=== PATIENT | male | born 1970 | race American Indian/Alaskan Native ===

== ENCOUNTER 2016-06-11 05:01 | Inpatient (IN) | payer MEDICARE ==
[2016-06-11] MEDS ORDERED: LASIX IV ONE (05:26)
[2016-06-11 05:41] LABS: Basophils % (Auto) 0.3 % (0.0-1.8); Eosinophils % (Auto) 0.7 % (0.0-4.3); Hematocrit 29.2 % (35.5-45.6); Hemoglobin 9.6 gm/dl (11.8-15.2); Mean Corpuscular HGB Conc 33 % (32-34); Mean Corpuscular Hemoglobin 26 pg (28-32); Mean Corpuscular Volume 80 fl (84-94); Platelet Count 286 K/mm3 (140-440); Red Blood Count 3.66 M/mm3 (3.65-5.03); Red Cell Distribution Width 15.2 % (13.2-15.2); White Blood Count 16.2 K/mm3 (4.5-11.0)
[2016-06-11 05:50] LABS: INR 0.92 (0.87-1.13)
[2016-06-11 05:51] LABS: Partial Thromboplastin Time 27.8 Sec. (24.2-36.6)
[2016-06-11 05:55] LABS: Creatine Kinase MB 6.2 ng/mL (0.0-4.0)
[2016-06-11 05:59] LABS: BUN/Creatinine Ratio 24.34; Calcium 8.8 mg/dL (8.4-10.2); Chloride 97.1 mmol/L (98-107); Potassium 3.7 mmol/L (3.6-5.0)
--- NOTE | 2016-06-11 06:21 | XRay Report ---
FINAL REPORT PROCEDURE: XR CHEST 1V AP TECHNIQUE: Chest radiograph anteroposterior view. CPT 94354 HISTORY: shortness of breath COMPARISON: No prior studies are available for comparison. FINDINGS: Heart: Normal. Mediastinum/Vessels: Normal. Lungs/Pleural space: Mild infiltrates bilateral lower lungs. No effusion or pneumothorax. Bony thorax: No acute osseous abnormality. Life support devices: None. IMPRESSION: Mild bilateral lower lung infiltrates..
[2016-06-11] MEDS ORDERED: ROCEPHIN/NS 1 GM/50 ML 1 GM/50 ML BAG IV ONE (06:24)
[2016-06-11] MEDS ORDERED: ZITHROMAX 500 MG in NACL 0.9% 250ML 250 ML IV ONE (06:24)
--- NOTE | 2016-06-11 06:25 | Emergency Department Report ---
ED General Adult HPI - General Chief complaint: Dyspnea/Respdistress Stated complaint: DIFFICULTY IN BREATHING Time Seen by Provider: 06/11/16 06:17 Source: patient, EMS, RN notes reviewed, old records reviewed Mode of arrival: Stretcher Limitations: Physical Limitation - History of Present Illness Initial comments: This is a 45-year-old male. He has a past medical history of congestive heart failure, renal insufficiency, hypertension/elevated blood pressure. Patient is brought to the hospital by EMS for respiratory distress. As per EMS documentation, patient began to have difficulty breathing at around midnight. Patient's has had previous intubations. Patient was medicated by self with Lasix, prednisone, albuterol. Prior to my evaluation, the patient was started on BiPAP therapy and Lasix, which she reports improved his symptoms. In addition, EMS gave 324 of aspirin at 4:31 AM. The patient denies dietary indiscretions, denies pain at this time , admits to cough, admits to shortness of breath. -: Gradual Quality: constant Consistency: constant Improves with: other (bi pap, meds) Worsens with: movement Associated Symptoms: cough, shortness of breath, weakness - Related Data Home Medications Medication Instructions Recorded Confirmed Last Taken Gabapentin [Neurontin] 600 mg PO TID 11/08/15 06/11/16 06/10/16 Clonidine HCl [Catapres] 0.3 mg PO BID 02/12/16 06/11/16 06/10/16 Ergocalciferol(Vitamin D2)(Nf) 3,200 unit PO QWEEK 02/12/16 06/11/16 06/10/16 [Vitamin D (Nf)] ISOSORBIDE MONOnitrate [Imdur ER] 60 mg PO QDAY 02/12/16 06/11/16 06/10/16 Omeprazole 40 mg PO DAILY 02/12/16 06/11/16 06/10/16 Oxycodone HCl/Acetaminophen 1 each PO Q8HR PRN 02/12/16 06/11/16 06/10/16 [Percocet 10/325 mg] clonazePAM 1 mg PO BID PRN 02/12/16 06/11/16 06/10/16 Insulin Glargine [Lantus VIAL] 100 unit SUB-Q QHS 06/11/16 06/11/16 06/10/16 Minoxidil 06/11/16 Unknown Previous Rx's Medication Instructions Recorded Last Taken Type Insulin Aspart [NovoLOG Flexpen] 60 unit SQ TID #10 ml 07/06/14 06/10/16 Rx ALBUTEROL Inhaler [ProAir HFA 2 puff IH QID PRN #1 inha 02/08/15 06/10/16 Rx Inhaler] Aspirin EC [Aspirin Enteric Coated 81 mg PO QDAY #30 tablet 02/08/15 06/10/16 Rx TAB] Carvedilol [Coreg] 25 mg PO BID #60 tablet 02/08/15 06/10/16 Rx Simvastatin [Zocor TAB] 40 mg PO QHS #30 tablet 02/08/15 06/10/16 Rx Bumetanide [Bumex] 1 mg PO BID #60 tab 02/19/16 06/10/16 Rx Loratadine/Pseudoephedrine 1 tab PO DAILY #30 tablet 06/12/16 Unknown Rx [Claritin-D 24Hr] Prednisone [predniSONE 10 mg 10 mg PO .TAPER #1 tab.ds.pk 06/12/16 Unknown Rx (6-Day Pack, 21 Tabs)] Allergies Allergy/AdvReac Type Severity Reaction Status Date / Time No Known Allergies Allergy Verified 11/25/13 20:27 ED Review of Systems ROS: Stated complaint: DIFFICULTY IN BREATHING Other details as noted in HPI Constitutional: malaise Eyes: denies: vision change ENT: denies: epistaxis Respiratory: shortness of breath Cardiovascular: dyspnea on exertion Gastrointestinal: denies: abdominal pain Genitourinary: as per HPI Musculoskeletal: arthralgia Skin: denies: lesions Neurological: weakness Psychiatric: anxiety ED Past Medical Hx - Past Medical History Previous Medical History?: Yes Hx Hypertension: Yes Hx Heart Attack/AMI: Yes (2009, last June 2015) Hx Congestive Heart Failure: Yes Hx Diabetes: Yes Hx Liver Disease: No Hx Renal Disease: Yes (Stage 3) Hx Kidney Stones: Yes (chronic) Hx Asthma: Yes Hx COPD: Yes Hx HIV: No Additional medical history: high cholestrerol - Surgical History Past Surgical History?: Yes Hx Coronary Stent: Yes - Social History Smoking Status: Never Smoker Substance Use Type: None - Medications Home Medications: Home Medications Medication Instructions Recorded Confirmed Last Taken Type Insulin Aspart [NovoLOG Flexpen] 60 unit SQ TID #10 ml 07/06/14 06/11/16 Rx ALBUTEROL Inhaler [ProAir HFA 2 puff IH QID PRN #1 inha 02/08/15 06/11/16 Rx Inhaler] Aspirin EC [Aspirin Enteric Coated 81 mg PO QDAY #30 tablet 02/08/15 06/11/16 Rx TAB] Carvedilol [Coreg] 25 mg PO BID #60 tablet 02/08/15 06/11/16 06/10/16 Rx Simvastatin [Zocor TAB] 40 mg PO QHS #30 tablet 02/08/15 06/11/16 06/10/16 Rx Gabapentin [Neurontin] 600 mg PO TID 11/08/15 06/11/16 06/10/16 History Clonidine HCl [Catapres] 0.3 mg PO BID 02/12/16 06/11/16 06/10/16 History Ergocalciferol(Vitamin D2)(Nf) 3,200 unit PO QWEEK 02/12/16 06/11/16 06/10/16 History [Vitamin D (Nf)] ISOSORBIDE MONOnitrate [Imdur ER] 60 mg PO QDAY 02/12/16 06/11/16 06/10/16 History Omeprazole 40 mg PO DAILY 02/12/16 06/11/16 06/10/16 History Oxycodone HCl/Acetaminophen 1 each PO Q8HR PRN 02/12/16 06/11/16 06/10/16 History [Percocet 10/325 mg] clonazePAM 1 mg PO BID PRN 02/12/16 06/11/16 06/10/16 History Bumetanide [Bumex] 1 mg PO BID #60 tab 02/19/16 06/11/16 06/10/16 Rx Insulin Glargine [Lantus VIAL] 100 unit SUB-Q QHS 06/11/16 06/11/16 06/10/16 History Minoxidil 06/11/16 Unknown History Loratadine/Pseudoephedrine 1 tab PO DAILY #30 tablet 06/12/16 Unknown Rx [Claritin-D 24Hr] Prednisone [predniSONE 10 mg 10 mg PO .TAPER #1 tab.ds.pk 06/12/16 Unknown Rx (6-Day Pack, 21 Tabs)] ED Physical Exam - General Limitations: Physical Limitation General appearance: obese - Head Head exam: Present: atraumatic, normocephalic - Eye Eye exam: Present: normal appearance - ENT ENT exam: Present: normal exam, normal orophraynx, mucous membranes moist, normal external ear exam - Neck Neck exam: Present: normal inspection, full ROM. Absent: tenderness, meningismus - Respiratory Respiratory exam: Present: respiratory distress, wheezes, rales, rhonchi - Cardiovascular Cardiovascular Exam: Present: regular rate, normal rhythm, normal heart sounds. Absent: bradycardia, tachycardia, irregular rhythm, systolic murmur, diastolic murmur, rubs, gallop - GI/Abdominal GI/Abdominal exam: Present: soft, normal bowel sounds. Absent: distended, tenderness, guarding, rebound, rigid, pulsatile mass - Rectal Rectal exam: Present: deferred - Extremities Exam Extremities exam: Present: normal inspection, full ROM, normal capillary refill , pedal edema. Absent: calf tenderness - Back Exam Back exam: Present: normal inspection, full ROM. Absent: tenderness, CVA tenderness (R), CVA tenderness (L), muscle spasm, paraspinal tenderness, vertebral tenderness - Neurological Exam Neurological exam: Present: alert, other (Extraocular movements intact. Tongue midline. No facial droop. Facial sensation intact to light touch in the V1, V2 , V3 distribution bilaterally. 5 and 5 strength in 4 extremities.. Sensation is intact to light touch in 4 extremities.). Absent: motor sensory deficit - Psychiatric Psychiatric exam: Present: normal affect, normal mood - Skin Skin exam: Present: warm, dry, intact, normal color. Absent: rash ED Course Vital Signs 06/11/16 06/11/16 06/11/16 05:02 05:08 05:20 Temperature 98.8 F Pulse Rate 92 H Respiratory 22 22 Rate Blood Pressure 130/75 Blood Pressure [Right] O2 Sat by Pulse 100 100 Oximetry 06/11/16 06/11/16 06/11/16 05:31 05:45 06:00 Temperature Pulse Rate 82 79 79 Respiratory 24 23 26 H Rate Blood Pressure 130/75 103/43 103/43 Blood Pressure [Right] O2 Sat by Pulse 98 100 99 Oximetry 06/11/16 06/11/16 06/11/16 06:31 07:12 07:58 Temperature 98.4 F Pulse Rate 77 78 73 Respiratory 25 H 20 23 Rate Blood Pressure 103/43 121/62 Blood Pressure 122/60 [Right] O2 Sat by Pulse 100 99 100 Oximetry 06/11/16 06/11/16 06/11/16 09:12 09:52 12:18 Temperature Pulse Rate 80 79 75 Respiratory 18 20 20 Rate Blood Pressure 138/71 138/69 121/57 Blood Pressure [Right] O2 Sat by Pulse 100 97 100 Oximetry 06/11/16 06/11/16 13:21 13:27 Temperature 97.6 F Pulse Rate 75 80 Respiratory 16 Rate Blood Pressure 138/70 Blood Pressure 140/75 [Right] O2 Sat by Pulse 100 Oximetry - Reevaluation(s) Reevaluation #1: 06/11/16 07:21 Differential diagnosis: Respiratory failure, pneumonia, congestive heart failure , cardiorenal syndrome, pulmonary hypertension, obstructive sleep apnea, obesity hypoventilation syndrome, multifactorial shortness of breath Assessment and plan: 45-year-old male with chronic renal insufficiency, congestive heart failure, probable acute respiratory failure secondary to pneumonia/CHF. He is resting currently on BiPAP therapy at this time. He will be treated with empirically for antibiotics for community-acquired pneumonia. Currently awaiting callback from Hospital physician to arrange admission. Elevated troponin is appreciated, this is most likely secondary to renal insufficiency and cardiac strain. I will defer to inpatient team to contact cardiology and/or nephrology if they feel like it is required. Reevaluation #2: 06/11/16 07:36 Dr Landers accepts patient to his service ED Medical Decision Making - Lab Data Result diagrams: 06/12/16 06:41 06/12/16 06:41 Vital Signs 06/11/16 06/11/16 06/11/16 05:02 05:08 05:20 Temperature 98.8 F Pulse Rate 92 H Respiratory 22 22 Rate Blood Pressure 130/75 Blood Pressure [Right] O2 Sat by Pulse 100 100 Oximetry 06/11/16 06/11/16 06/11/16 05:31 05:45 06:00 Temperature Pulse Rate 82 79 79 Respiratory 24 23 26 H Rate Blood Pressure 130/75 103/43 103/43 Blood Pressure [Right] O2 Sat by Pulse 98 100 99 Oximetry 06/11/16 06/11/16 06:31 07:12 Temperature 98.4 F Pulse Rate 77 78 Respiratory 25 H 20 Rate Blood Pressure 103/43 Blood Pressure 122/60 [Right] O2 Sat by Pulse 100 99 Oximetry Lab Results 06/11/16 06/11/16 06/11/16 Range/Units 05:20 05:20 05:20 WBC 16.2 H (4.5-11.0) K/mm3 RBC 3.66 (3.65-5.03) M/mm3 Hgb 9.6 L (11.8-15.2) gm/dl Hct 29.2 L (35.5-45.6) % MCV 80 L (84-94) fl MCH 26 L (28-32) pg MCHC 33 (32-34) % RDW 15.2 (13.2-15.2) % Plt Count 286 (140-440) K/mm3 Lymph % (Auto) 6.7 L (13.4-35.0) % [place] % (Auto) 2.5 (0.0-7.3) % Eos % (Auto) 0.7 (0.0-4.3) % Baso % (Auto) 0.3 (0.0-1.8) % Lymph # 1.1 L (1.2-5.4) K/mm3 Hancock # 0.4 (0.0-0.8) K/mm3 Eos # 0.1 (0.0-0.4) K/mm3 Baso # 0.1 (0.0-0.1) K/mm3 Seg Neutrophils % 89.8 H (40.0-70.0) % Seg Neutrophils # 14.5 H (1.8-7.7) K/mm3 PT 12.3 (12.2-14.9) Sec. INR 0.92 (0.87-1.13) APTT 27.8 (24.2-36.6) Sec. Sodium 138 (137-145) mmol/L Potassium 3.7 (3.6-5.0) mmol/L Chloride 97.1 L (98-107) mmol/L Carbon Dioxide 24 (22-30) mmol/L Anion Gap 21 mmol/L BUN 56 H (9-20) mg/dL Creatinine 2.3 H (0.8-1.5) mg/dL Estimated GFR 38 ml/min BUN/Creatinine Ratio 24.34 % Glucose 357 H (75-100) mg/dL Calcium 8.8 (8.4-10.2) mg/dL CK-MB (CK-2) 6.2 H (0.0-4.0) ng/mL Troponin T 0.077 H (0.00-0.029) ng/mL NT-Pro-B Natriuret Pep 685.6 H (0-450) pg/mL Triglycerides 255 H (2-149) mg/dL Cholesterol 81 (50-199) mg/dL LDL Cholesterol Direct 9 L (50-130) mg/dL HDL Cholesterol 21 L (40-59) mg/dL Cholesterol/HDL Ratio 3.85 % - EKG Data -: EKG Interpreted by Me - EKG Data 06/11/16 07:22 normal sinus, 86 beats per minute, QTC 457 ms, motion artifact, nonspecific T-wave abnormality, not morphologically consistent with STEMI, when compared to old EKG from January 2017, appears essentially unchanged. - Radiology Data Radiology results: report reviewed, image reviewed X-ray of the chest demonstrates bilateral infiltrates, CHF versus pneumonia Critical Care Time: Yes Critical care time in (mins) excluding proc time.: 35 Critical care attestation.: If time is entered above; I have spent that time in minutes in the direct care of this critically ill patient, excluding procedure time. Critical Care Time: Critical care time included multiple bedside evaluations, interpretation of laboratory studies, radiology studies, time spent managing a patient with respiratory failure requiring initiation of positive pressure/noninvasive ventilation. This does not include procedure time. ED Disposition Clinical Impression: Renal insufficiency, Pneumonia, Elevated troponin, CHF (congestive heart failure) Disposition: OP ADMITTED IP TO THIS HOSP Is pt being admited?: Yes Condition: Good
--- NOTE | 2016-06-11 07:19 | Admit Criteria Form ---
Admission Criteria Documentation: HEART FAILURE: COMMON COMPLICATIONS Clinical Indications for Inpatient Care (Place 'X' for any and all applicable criteria): Ongoing inpatient care may be indicated for heart failure with ANY ONE of the following (1)(2)(3)(4)(5): [ ]I. Ongoing need for care for primary condition requiring frequent therapy adjustments because of changes in cardiac function (eg, drug dosage changes for drugs that are renally metabolized) [ ]II. New-onset heart failure [ ]III. Heart failure with decreased urine output not responsive to attempts to optimize volume status [ ]IV. Acute cardiac ischemia causing or associated with failure [X]V. Complications of heart failure, including ANY ONE of the following: [ ]a) Pericardial effusion [ ]b) Symptomatic pleural effusion [ ]c) O2 saturation <90% or PO2 < 60 mm Hg (8.0 kPa) on room air or require baseline supplemental O2 [ ]d) Tachypnea [X]e) Dyspnea [ ]f) Syncope [ ]g) Change in mental status [ ]h) Acute renal insufficiency that is severe (reduction of more than 50% in estimated glomerular filtration rate from baseline) or progressive reduction of more than 25% in estimated glomerular filtration rate from baseline, with creatinine continuing to rise) [ ]i) Hemodynamic instability [ ]j) Anasarca [ ]k) Clinically significant metabolic abnormalities due to heart failure (eg, new-onset metabolic acidosis) Extended stay beyond goal length of stay for primary condition may be needed until ALL of the following are present(1)(3): [ ]a) Stable and effective diuretic regimen established (or patient on stable dialysis regimen if in chronic renal failure) [ ]b) Breathing comfortably at rest [ ]c) Saturation of arterial oxygen greater than 90% or at acceptable baseline [ ]d) Pulmonary edema absent or improved [ ]e) Hemodynamic stability [ ]f) Volume status acceptable on oral medication [ ]g) Peripheral or sacral edema absent or improved [ ]h) Renal function stable and manageable at a lower level of care [ ]i) Complications (eg, pleural effusion) resolved or manageable at a lower level of care [ ]j) Patient or caregiver has received written discharge instructions or educational material addressing activity level, diet, discharge medications, follow-up appointment, weight monitoring, and what to do if symptoms worsen The original [facility] content created by [employer] has been revised. The portions of the content which have been revised are identified through the use of italic text or in bold, and [facility] has neither reviewed nor approved the modified material.All other unmodified content is copyright [facility]. Please see references footnoted in the original [facility] edition 2016 Admission Criteria Met: Yes
[2016-06-11] MEDS ORDERED: NON-FORMULARY (Oxycodone Hcl/Acetaminophen [Percocet 10/325 Mg] 1 EACH) PO PRN (08:10)
[2016-06-11] MEDS ORDERED: NON-FORMULARY (Clonazepam [Clonazepam] 1 MG) PO PRN (08:10)
[2016-06-11] MEDS ORDERED: PROAIR IH PRN (08:10)
--- NOTE | 2016-06-11 08:10 | History and Physical Report ---
History of Present Illness Date of examination: 06/11/16 History of present illness: This is a 45-year-old male. He has a past medical history of congestive heart failure, renal insufficiency, hypertension/elevated blood pressure. Patient is brought to the hospital by EMS for respiratory distress. As per EMS documentation, patient began to have difficulty breathing at around midnight. Patient's has had previous intubations. Patient was medicated by self with Lasix, prednisone, albuterol. Prior to my evaluation, the patient was started on BiPAP therapy and Lasix, which she reports improved his symptoms. In addition, EMS gave 324 of aspirin at 4:31 AM. The patient denies dietary indiscretions, denies pain at this time , admits to cough, admits to shortness of breath. Past History Past Medical History: diabetes, hypertension, hyperlipidemia Medications and Allergies Allergies Allergy/AdvReac Type Severity Reaction Status Date / Time No Known Allergies Allergy Verified 11/25/13 20:27 Home Medications Medication Instructions Recorded Confirmed Last Taken Type Insulin Aspart [NovoLOG Flexpen] 60 unit SQ TID #10 ml 07/06/14 06/11/16 Rx ALBUTEROL Inhaler [ProAir HFA 2 puff IH QID PRN #1 inha 02/08/15 06/11/16 Rx Inhaler] Aspirin EC [Aspirin Enteric Coated 81 mg PO QDAY #30 tablet 02/08/15 06/11/16 Rx TAB] Carvedilol [Coreg] 25 mg PO BID #60 tablet 02/08/15 06/11/16 06/10/16 Rx Simvastatin [Zocor TAB] 40 mg PO QHS #30 tablet 02/08/15 06/11/16 06/10/16 Rx Gabapentin [Neurontin] 600 mg PO TID 11/08/15 06/11/16 06/10/16 History Clonidine HCl [Catapres] 0.3 mg PO BID 02/12/16 06/11/16 06/10/16 History Ergocalciferol(Vitamin D2)(Nf) 3,200 unit PO QWEEK 02/12/16 06/11/16 06/10/16 History [Vitamin D (Nf)] ISOSORBIDE MONOnitrate [Imdur ER] 60 mg PO QDAY 1106/11/16 06/10/16 History Omeprazole 40 mg PO DAILY 02/12/16 06/11/16 06/10/16 History Oxycodone HCl/Acetaminophen 1 each PO Q8HR PRN 02/12/16 06/11/16 06/10/16 History [Percocet 10/325 mg] clonazePAM 1 mg PO BID PRN 02/12/16 06/11/16 06/10/16 History Bumetanide [Bumex] 1 mg PO BID #60 tab 02/19/16 06/11/16 06/10/16 Rx Insulin Glargine [Lantus VIAL] 100 unit SUB-Q QHS 06/11/16 06/11/16 06/10/16 History Minoxidil 06/11/16 Unknown History Review of Systems Constitutional: fatigue Cardiovascular: shortness of breath Exam - Constitutional Vitals: Temp Pulse Resp BP Pulse Ox 98.4 F 73 23 121/62 100 06/11/16 07:12 06/11/16 07:58 06/11/16 07:58 06/11/16 07:58 06/11/16 07:58 General appearance: Present: mild distress - EENT Eyes: Present: PERRL, EOM intact ENT: hearing intact, clear oral mucosa - Neck Neck: Present: supple, normal ROM - Respiratory Respiratory effort: normal Respiratory: bilateral: rhonchi - Cardiovascular Rhythm: regular Heart Sounds: Present: S1 & S2 - Extremities Extremity abnormal: edema - Abdominal General gastrointestinal: Present: soft, non-tender, non-distended, normal bowel sounds - Musculoskeletal Musculoskeletal: strength equal bilaterally - Psychiatric Psychiatric: appropriate mood/affect, intact judgment & insight - Neurologic Neurologic: CNII-XII intact, moves all extremities Results - Labs CBC & Chem 7: 06/11/16 05:20 06/11/16 05:20 Labs: Laboratory Last Values WBC 16.2 K/mm3 (4.5-11.0) H 06/11/16 05:20 RBC 3.66 M/mm3 (3.65-5.03) 06/11/16 05:20 Hgb 9.6 gm/dl (11.8-15.2) L 06/11/16 05:20 Hct 29.2 % (35.5-45.6) L 06/11/16 05:20 MCV 80 fl (84-94) L 06/11/16 05:20 MCH 26 pg (28-32) L 06/11/16 05:20 MCHC 33 % (32-34) 06/11/16 05:20 RDW 15.2 % (13.2-15.2) 06/11/16 05:20 Plt Count 286 K/mm3 (140-440) 06/11/16 05:20 Lymph % (Auto) 6.7 % (13.4-35.0) L 06/11/16 05:20 Bacon % (Auto) 2.5 % (0.0-7.3) 06/11/16 05:20 Eos % (Auto) 0.7 % (0.0-4.3) 06/11/16 05:20 Baso % (Auto) 0.3 % (0.0-1.8) 06/11/16 05:20 Lymph # 1.1 K/mm3 (1.2-5.4) L 06/11/16 05:20 Bacon # 0.4 K/mm3 (0.0-0.8) 06/11/16 05:20 Eos # 0.1 K/mm3 (0.0-0.4) 06/11/16 05:20 Baso # 0.1 K/mm3 (0.0-0.1) 06/11/16 05:20 Seg Neutrophils % 89.8 % (40.0-70.0) H 06/11/16 05:20 Seg Neutrophils # 14.5 K/mm3 (1.8-7.7) H 06/11/16 05:20 PT 12.3 Sec. (12.2-14.9) 06/11/16 05:20 INR 0.92 (0.87-1.13) 06/11/16 05:20 APTT 27.8 Sec. (24.2-36.6) 06/11/16 05:20 Sodium 138 mmol/L (137-145) 06/11/16 05:20 Potassium 3.7 mmol/L (3.6-5.0) 06/11/16 05:20 Chloride 97.1 mmol/L (98-107) L 06/11/16 05:20 Carbon Dioxide 24 mmol/L (22-30) 06/11/16 05:20 Anion Gap 21 mmol/L 06/11/16 05:20 BUN 56 mg/dL (9-20) H 06/11/16 05:20 Creatinine 2.3 mg/dL (0.8-1.5) H 06/11/16 05:20 Estimated GFR 38 ml/min 06/11/16 05:20 BUN/Creatinine Ratio 24.34 % 06/11/16 05:20 Glucose 357 mg/dL (75-100) H 06/11/16 05:20 Calcium 8.8 mg/dL (8.4-10.2) 06/11/16 05:20 Magnesium 1.7 mg/dL (1.7-2.3) 06/11/16 06:53 Total Creatine Kinase 11 units/L (55-170) L 06/11/16 05:20 CK-MB (CK-2) 6.2 ng/mL (0.0-4.0) H 06/11/16 05:20 CK-MB (CK-2) Rel Index 56.3 (0-4) H 06/11/16 05:20 Troponin T 0.077 ng/mL (0.00-0.029) H 06/11/16 05:20 NT-Pro-B Natriuret Pep 685.6 pg/mL (0-450) H 06/11/16 05:20 Triglycerides 255 mg/dL (2-149) H 06/11/16 05:20 Cholesterol 81 mg/dL (50-199) 06/11/16 05:20 LDL Cholesterol Direct 9 mg/dL (50-130) L 06/11/16 05:20 HDL Cholesterol 21 mg/dL (40-59) L 06/11/16 05:20 Cholesterol/HDL Ratio 3.85 % 06/11/16 05:20 Assessment and Plan - Patient Problems (1) CHF (congestive heart failure) Current Visit: Yes Status: Acute Qualifiers: Congestive heart failure type: C Congestive heart failure chronicity: C Plan to address problem: Will admit patient to telemetry, 2-D Echo, follow troponins, Lasix, carvedilol, cardiology consult (2) Elevated troponin Current Visit: Yes Status: Acute Plan to address problem: Cardiology consult, follow troponins, aspirin, beta blockers (3) Pneumonia Current Visit: Yes Status: Acute Qualifiers: Pneumonia type: P Aspiration pneumonia type: A Laterality: L Lung location: L Plan to address problem: Will start Levaquin IV, follow cultures (4) ADDY (acute kidney injury) Current Visit: No Status: Acute Plan to address problem: Nephrology consult. IV fluid hydration. Renal ultrasound
[2016-06-11] MEDS: COREG PO SCH ×2 (09:52→21:57)
[2016-06-11] MEDS: ZESTRIL PO SCH (09:54)
[2016-06-11] MEDS ORDERED: PERCOCET 5/325 PO PRN ×2 (10:00→11:00)
[2016-06-11] MEDS ORDERED: TYLENOL PO PRN (10:00)
[2016-06-11] MEDS ORDERED: NON-FORMULARY (Pregabalin [Lyrica] 50 MG) PO SCH (10:00)
[2016-06-11] MEDS ORDERED: NON-FORMULARY (Omeprazole [Omeprazole] 40 MG) PO SCH (10:00)
[2016-06-11] MEDS ORDERED: ERGOCALCIFEROL PO SCH (10:00)
[2016-06-11] MEDS ORDERED: NON-FORMULARY (Clonidine Hcl [Catapres] 0.3 MG) PO SCH (10:00)
[2016-06-11] MEDS ORDERED: ZOFRAN IV PRN (10:00)
[2016-06-11] MEDS ORDERED: DULCOLAX PR PRN (10:00)
[2016-06-11] MEDS ORDERED: MORPHINE IV PRN (10:00)
[2016-06-11] MEDS ORDERED: LOVENOX SUB-Q SCH (10:00)
[2016-06-11] MEDS ORDERED: MILK OF MAGNESIA PO PRN (10:00)
[2016-06-11] MEDS: LASIX IV SCH ×2 (10:44→21:57)
[2016-06-11] MEDS: CATAPRES PO SCH ×2 (12:18)
[2016-06-11] MEDS: PROTONIX PO SCH (12:19)
[2016-06-11] MEDS: LOVENOX SUB-Q SCH (12:19)
[2016-06-11] MEDS: LYRICA PO SCH ×2 (12:22→21:57)
[2016-06-11] MEDS: HALFPRIN EC PO SCH (13:27)
[2016-06-11] MEDS: IMDUR PO SCH (13:27)
[2016-06-11] MEDS: NEURONTIN PO SCH ×2 (15:26→20:10)
--- NOTE | 2016-06-11 17:58 | Consultation ---
History of Present Illness Consult date: 06/11/16 Requesting physician: [place] NAVA Consult reason: congestive heart failure, elevated troponin History of present illness: The patient has a history of chronic diastolic heart failure, obstructive sleep apnea and chronic respiratory failure on home oxygen therapy at 3 L by nasal cannula. He has chronic orthopnea. He claims that he has been hospitalized frequently over the past few months at [facility]. He also reports undergoing coronary angiography about a year ago at [facility] which revealed small vessel coronary disease. Echocardiogram in November 2015 revealed an ejection fraction of 50-55%. He woke up last night with shortness of breath and coughing as well as hemoptysis. Following initial bouts of hemoptysis, he was producing pink frothy sputum. There is no chest pain. Initial set of cardiac enzymes are mildly abnormal. Chest x-ray showed bilateral pulmonary infiltrates. The patient mentioned that he was being considered for ICD implantation during his recent hospitalization at [facility]. Past History Past Medical History: diabetes, heart failure (chronic diastolic heart failure) , hypertension, hyperlipidemia, renal failure, other (obstructive sleep apnea, coronary angiography about a year ago at [facility] reportedly showed small vessel disease, echo of November 2015 showed an ejection fraction of 50 55 percent, negative stress test in December 2013, chronic respiratory failure on home oxygen therapy) Past Surgical History: Other (coronary angiography) Social history: . denies: smoking, alcohol abuse Family history: no significant family history Medications and Allergies Allergies Allergy/AdvReac Type Severity Reaction Status Date / Time No Known Allergies Allergy Verified 11/25/13 20:27 Home Medications Medication Instructions Recorded Confirmed Last Taken Type Insulin Aspart [NovoLOG Flexpen] 60 unit SQ TID #10 ml 07/06/14 06/11/16 Rx ALBUTEROL Inhaler [ProAir HFA 2 puff IH QID PRN #1 inha 02/08/15 06/11/16 Rx Inhaler] Aspirin EC [Aspirin Enteric Coated 81 mg PO QDAY #30 tablet 02/08/15 06/11/16 Rx TAB] Carvedilol [Coreg] 25 mg PO BID #60 tablet 02/08/15 06/11/16 06/10/16 Rx Simvastatin [Zocor TAB] 40 mg PO QHS #30 tablet 02/08/15 06/11/1606/10/17 Rx Gabapentin [Neurontin] 600 mg PO TID 11/08/15 06/11/16 06/10/16 History Clonidine HCl [Catapres] 0.3 mg PO BID 02/12/16 06/11/16 06/10/16 History Ergocalciferol(Vitamin D2)(Nf) 3,200 unit PO QWEEK 02/12/16 06/11/16 06/10/16 History [Vitamin D (Nf)] ISOSORBIDE MONOnitrate [Imdur ER] 60 mg PO QDAY 02/12/16 06/11/16 06/10/16 History Omeprazole 40 mg PO DAILY 02/12/16 06/11/16 06/10/16 History Oxycodone HCl/Acetaminophen 1 each PO Q8HR PRN 02/12/16 06/11/16 06/10/16 History [Percocet 10/325 mg] clonazePAM 1 mg PO BID PRN 02/12/16 06/11/16 06/10/16 History Bumetanide [Bumex] 1 mg PO BID #60 tab 02/19/16 06/11/16 06/10/16 Rx Insulin Glargine [Lantus VIAL] 100 unit SUB-Q QHS 06/11/16 06/11/16 06/10/16 History Minoxidil 06/11/16 Unknown History Active Meds: Active Medications Acetaminophen (Tylenol) 650 mg PO Q4H PRN PRN Reason: Pain MILD(1-3)/Fever >100.5/ZIEGLER Albuterol (Proair) 2 puff IH QID PRN PRN Reason: Shortness Of Breath Aspirin (Halfprin Ec) 81 mg PO QDAY [facility] Last Admin: 06/11/16 13:27 Dose: 81 mg Bisacodyl (Dulcolax) 10 mg [place] QDAY PRN PRN Reason: Constipation unrelieved by MOM Carvedilol (Coreg) 25 mg PO BID [facility] Last Admin: 06/11/16 09:52 Dose: 25 mg Clonazepam (Klonopin) 1 mg PO BID PRN PRN Reason: Anxiety Clonidine HCl (Catapres) 0.1 mg PO BID [facility] Last Admin: 06/11/16 12:18 Dose: 0.1 mg Clonidine HCl (Catapres) 0.2 mg PO BID [facility] Last Admin: 06/11/16 12:18 Dose: 0.2 mg Enoxaparin Sodium (Lovenox) 40 mg SUB-Q QDAY@1000 [facility] Last Admin: 06/11/16 12:19 Dose: 40 mg Furosemide (Lasix) 20 mg IV BID [facility] Last Admin: 06/11/16 10:44 Dose: Not Given Gabapentin (Neurontin) 600 mg PO TID [facility] Last Admin: 06/11/16 15:26 Dose: 600 mg Isosorbide Mononitrate (Imdur) 60 mg PO QDAY [facility] Last Admin: 06/11/16 13:27 Dose: 60 mg Lisinopril (Zestril) 5 mg PO QDAY [facility] Last Admin: 06/11/16 09:54 Dose: Not Given Magnesium Hydroxide (Milk Of Magnesia) 30 ml PO Q4H PRN PRN Reason: Constipation Miscellaneous Medication (Ergocalciferol(Vitamin D2)(Nf)) 3,200 unit PO QWEEK [facility] Morphine Sulfate (Morphine) 2 mg IV Q4H PRN PRN Reason: Pain, Moderate (4-6) Ondansetron HCl (Zofran) 4 mg IV Q8H PRN PRN Reason: Nausea And Vomiting Oxycodone/Acetaminophen (Percocet 5/325) 1 tab PO Q8H PRN PRN Reason: Pain, Moderate (4-6) Pantoprazole Sodium (Protonix) 40 mg PO DAILY [facility] Last Admin: 06/11/16 12:19 Dose: 40 mg Pregabalin (Lyrica) 50 mg PO BID [facility] Last Admin: 06/11/16 12:22 Dose: Not Given Simvastatin (Zocor) 40 mg PO QHS [facility] Physical Examination Vital Signs Last Vital Signs Temp 97.6 F 06/11/16 13:21 Pulse 78 06/11/16 14:42 Resp 18 06/11/16 14:42 BP 138/70 06/11/16 13:27 Pulse Ox 98 06/11/16 14:42 General appearance: no acute distress HEENT: Positive: EOMI, Normocephaly, Mucus Membranes Moist Neck: Positive: neck supple, trachea midline Cardiac: Positive: Reg Rate and Rhythm, S1/S2 Lungs: Positive: Decreased Breath Sounds (bilaterally) Neuro: Positive: Grossly Intact Abdomen: Positive: Soft, Active Bowel Sounds. Negative: Tender Skin: Positive: Clear. Negative: Rash Musculoskeletal: Normal Range of Motion Extremities: Present: +1 Edema (in both legs) Results 06/11/16 05:20 06/11/16 05:20 - Imaging and Cardiology EKG: image reviewed EKG interpretations - Telemetry EKG Rhythm: Sinus Rhythm - EKG Sinus rhythms and dysrhythmias: sinus rhythm Repolarization changes or abnormalities: ST or T wave suggestive of ischemia Assessment and Plan Continue diuretics and other management. Obtain records of most recent hospitalization from [facility] including recent echocardiogram. - Patient Problems (1) Acute on chronic heart failure Current Visit: Yes Status: Acute Qualifiers: Heart failure type: unspecified heart failure type Qualified Code(s): I50.9 - Heart failure, unspecified (2) Elevation of cardiac enzymes Current Visit: Yes Status: Acute (3) Acute and chronic respiratory failure Current Visit: Yes Status: Acute Qualifiers: Respiratory failure complication: R (4) Acute kidney injury superimposed on CKD Current Visit: Yes Status: Acute (5) Obstructive sleep apnea Current Visit: Yes Status: Acute (6) Pneumonia Current Visit: Yes Status: Acute Qualifiers: Pneumonia type: P Aspiration pneumonia type: A Laterality: L Lung location: L (7) CAD (coronary artery disease) Current Visit: Yes Status: Chronic Qualifiers: Coronary Disease-Associated Artery/Lesion type: [place] artery [place] vs. transplanted heart: N Associated angina: A (8) Morbid obesity Current Visit: Yes Status: Chronic Qualifiers: Obesity type: O
[2016-06-11] MEDS: PROVENTIL IH SCH (19:53)
[2016-06-11] MEDS ORDERED: D50W (25GM) IV PRN (20:06)
[2016-06-11] MEDS ORDERED: ZOCOR PO SCH (22:00)
[2016-06-11] MEDS: NOVOLOG SUB-Q SCH (23:06)
[2016-06-12] MEDS: CATAPRES PO SCH ×4 (01:33→09:05)
[2016-06-12 07:50] LABS: Basophils % (Auto) 0.2 % (0.0-1.8); Eosinophils % (Auto) 0.7 % (0.0-4.3); Hematocrit 24.4 % (35.5-45.6); Mean Corpuscular HGB Conc 33 % (32-34); Mean Corpuscular Hemoglobin 26 pg (28-32); Mean Corpuscular Volume 80 fl (84-94); Platelet Count 212 K/mm3 (140-440); Red Blood Count 3.05 M/mm3 (3.65-5.03); Red Cell Distribution Width 15.1 % (13.2-15.2); White Blood Count 13.2 K/mm3 (4.5-11.0)
[2016-06-12] MEDS: PROVENTIL IH SCH ×2 (07:53→13:55)
[2016-06-12 08:03] LABS: Albumin 3.3 g/dL (3.9-5); Calcium 8.5 mg/dL (8.4-10.2); Chloride 95.8 mmol/L (98-107); Magnesium 1.8 mg/dL (1.7-2.3); Phosphorous 4.2 mg/dL (2.5-4.5); Potassium 3.5 mmol/L (3.6-5.0); Total Protein 6.7 g/dL (6.3-8.2)
--- NOTE | 2016-06-12 08:40 | Consultation ---
History of Present Illness - Reason for Consult Consult date: 06/12/16 acute renal failure Requesting physician: DOUGLAS YOO - History of Present Illness 35-year-old male who is well known to me with a history of chronic heart failure presented on account of shortness of breath. Patient states he was working on his car and on finishing up went into the house to do some schoolwork. He became sleepy and went to bed. He woke up at midnight coughing and short of breath. His gave him Lasix and prednisone and albuterol. Symptoms Worsened and at about 4 AM they called the ambulance and was brought to the hospital. Patient was given Lasix and placed on BiPAP enRoute. He admits that he had developed lower extremity swelling and palpitations. Denies any chest pain. Cough was productive of yellow sputum and became bloodstained. A few days prior to this he began having stuffy nose and a dry cough which he attributed to allergies. He went to the emergency room but was unable to be seen on account of the long wait. He admits to chills but no fever. Past History Past Medical History: diabetes, heart failure (chronic diastolic heart failure) , hypertension, hyperlipidemia, renal failure, other (obstructive sleep apnea, coronary angiography about a year ago at [facility] reportedly showed small vessel disease, echo of November 2015 showed an ejection fraction of 50 55 percent, negative stress test in December 2013, chronic respiratory failure on home oxygen therapy) Past Surgical History: Other (coronary angiography) Social history: . denies: smoking, alcohol abuse Family history: no significant family history Medications and Allergies Allergies Allergy/AdvReac Type Severity Reaction Status Date / Time No Known Allergies Allergy Verified 11/25/13 20:27 Home Medications Medication Instructions Recorded Confirmed Last Taken Type Insulin Aspart [NovoLOG Flexpen] 60 unit SQ TID #10 ml 07/06/14 06/11/16 Rx ALBUTEROL Inhaler [ProAir HFA 2 puff IH QID PRN #1 inha 02/08/15 06/11/16 Rx Inhaler] Aspirin EC [Aspirin Enteric Coated 81 mg PO QDAY #30 tablet 02/08/15 06/11/16 Rx TAB] Carvedilol [Coreg] 25 mg PO BID #60 tablet 02/08/15 06/11/1606/10/17 Rx Simvastatin [Zocor TAB] 40 mg PO QHS #30 tablet 02/08/15 06/11/16 06/10/16 Rx Gabapentin [Neurontin] 600 mg PO TID 11/08/15 06/11/16 06/10/16 History Clonidine HCl [Catapres] 0.3 mg PO BID 02/12/16 06/11/16 06/10/16 History Ergocalciferol(Vitamin D2)(Nf) 3,200 unit PO QWEEK 02/12/16 06/11/16 06/10/16 History [Vitamin D (Nf)] ISOSORBIDE MONOnitrate [Imdur ER] 60 mg PO QDAY 02/12/16 06/11/16 06/10/16 History Omeprazole 40 mg PO DAILY 02/12/16 06/11/16 06/10/16 History Oxycodone HCl/Acetaminophen 1 each PO Q8HR PRN 02/12/16 06/11/16 06/10/16 History [Percocet 10/325 mg] clonazePAM 1 mg PO BID PRN 02/12/16 06/11/16 06/10/16 History Bumetanide [Bumex] 1 mg PO BID #60 tab 02/19/16 06/11/16 06/10/16 Rx Insulin Glargine [Lantus VIAL] 100 unit SUB-Q QHS 06/11/16 06/11/16 06/10/16 History Minoxidil 06/11/16 Unknown History Loratadine/Pseudoephedrine 1 tab PO DAILY #30 tablet 06/12/16 Unknown Rx [Claritin-D 24Hr] Prednisone [predniSONE 10 mg 10 mg PO .TAPER #1 tab.ds.pk 06/12/16 Unknown Rx (6-Day Pack, 21 Tabs)] Active Meds: Active Medications Acetaminophen (Tylenol) 650 mg PO Q4H PRN PRN Reason: Pain MILD(1-3)/Fever >100.5/ZIEGLER Albuterol (Proair) 2 puff IH QID PRN PRN Reason: Shortness Of Breath Albuterol (Proventil) 2.5 mg IH TIDRT [facility] Last Admin: 06/12/16 07:53 Dose: 2.5 mg Aspirin (Halfprin Ec) 81 mg PO QDAY [facility] Last Admin: 06/11/16 13:27 Dose: 81 mg Bisacodyl (Dulcolax) 10 mg [place] QDAY PRN PRN Reason: Constipation unrelieved by MOM Carvedilol (Coreg) 25 mg PO BID [facility] Last Admin: 06/11/16 21:57 Dose: 25 mg Clonazepam (Klonopin) 1 mg PO BID PRN PRN Reason: Anxiety Last Admin: 06/11/16 20:10 Dose: 1 mg Clonidine HCl (Catapres) 0.1 mg PO BID [facility] Last Admin: 06/12/16 01:33 Dose: 0.1 mg Clonidine HCl (Catapres) 0.2 mg PO BID [facility] Last Admin: 06/12/16 01:34 Dose: 0.2 mg Dextrose (D50w (25gm)) 50 ml IV PRN PRN PRN Reason: Hypoglycemia Enoxaparin Sodium (Lovenox) 40 mg SUB-Q QDAY@1000 [facility] Last Admin: 06/11/16 12:19 Dose: 40 mg Furosemide (Lasix) 20 mg IV BID [facility] Last Admin: 06/11/16 21:57 Dose: 20 mg Gabapentin (Neurontin) 600 mg PO TID [facility] Last Admin: 06/11/16 20:10 Dose: 600 mg Insulin Aspart (Novolog) 0 units SUB-Q ACHS [facility] PRN Reason: Protocol Last Admin: 06/11/16 23:06 Dose: 8 units Isosorbide Mononitrate (Imdur) 60 mg PO QDAY [facility] Last Admin: 06/11/16 13:27 Dose: 60 mg Lisinopril (Zestril) 5 mg PO QDAY [facility] Last Admin: 06/11/16 09:54 Dose: Not Given Magnesium Hydroxide (Milk Of Magnesia) 30 ml PO Q4H PRN PRN Reason: Constipation Miscellaneous Medication (Ergocalciferol(Vitamin D2)(Nf)) 3,200 unit PO QWEEK [facility] Morphine Sulfate (Morphine) 2 mg IV Q4H PRN PRN Reason: Pain, Moderate (4-6) Ondansetron HCl (Zofran) 4 mg IV Q8H PRN PRN Reason: Nausea And Vomiting Oxycodone/Acetaminophen (Percocet 5/325) 1 tab PO Q8H PRN PRN Reason: Pain, Moderate (4-6) Last Admin: 06/11/16 20:10 Dose: 1 tab Pantoprazole Sodium (Protonix) 40 mg PO DAILY [facility] Last Admin: 06/11/16 12:19 Dose: 40 mg Pregabalin (Lyrica) 50 mg PO BID [facility] Last Admin: 06/11/16 21:57 Dose: 50 mg Simvastatin (Zocor) 40 mg PO QHS [facility] Last Admin: 06/11/16 21:57 Dose: 40 mg Review of Systems All systems: negative (Constitutional: no fever but admits to chills. No anorexia or weight loss. HEENT: Occasional sore throat but no sinus drainage no hearing or vision impairment . Cardiovascular: No chest pain, he had shortness of breath, palpitations, and and lower extremity swelling. Respiratory: See history of present illness Gastrointestinal: No nausea, vomiting, diarrhea, abdominal pain, hematemesis or melena. Genitourinary: No frequency urgency dysuria or hematuria. hematologic: No abnormal bleeding or bruising. Integumentary: no pruritus or rash. Neurological: Occasional headache and dizziness. No focal weakness or numbness, no syncope or seizures. Musculoskeletal: No joint pains but admits to stiffness. Psychiatry: Admits to anxiety but no depression) Exam - Vital Signs Vital signs: Vital Signs Temp Pulse Resp BP Pulse Ox 98.8 F 92 H 22 130/75 100 06/11/16 05:02 06/11/16 05:02 06/11/16 05:02 06/11/16 05:02 06/11/16 05:02 - Physical Exam Narrative exam: Obese middle-aged -[place] male lying in bed in no acute distress HEENT normocephalic atraumatic, pupils equal reactive to light, pink, clear oropharynx Neck supple, no thyromegaly no jugular venous distention CVS S1-S2 distant heart sounds, regular rate rhythm without murmur, rub or gallop Chest diminished breath sounds lower zones Abdomen soft, nondistended, nontender, no organomegaly, no bruit, bowel sounds present Extremities 1-2+ edema no cyanosis or clubbing Genitourinary deferred Neuro awake, alert oriented x3 no gross deficit Results - Lab Results 06/12/16 06:41 06/12/16 06:41 Most recent lab results Calcium 8.5 mg/dL (8.4-10.2) 06/12/16 06:41 Phosphorus 4.2 mg/dL (2.5-4.5) 06/12/16 06:41 Magnesium 1.8 mg/dL (1.7-2.3) 06/12/16 06:41 Assessment and Plan - Patient Problems (1) Acute kidney injury superimposed on chronic kidney disease Status: Acute Plan to address problem: Baseline chronic kidney disease with superimposed acute cardiorenal syndrome. Get urinalysis. Follow up electrolytes and renal function with IV diuretic. (2) Acute on chronic diastolic heart failure Status: Acute Plan to address problem: IV diuretic. Change to Bumex 1 mg IV every 12 hours. Monitor outputs and follow-up at rest or status (3) Reactive airway disease with acute exacerbation Status: Acute Plan to address problem: Bronchodilating nebulizer treatments, IV steroids and supplemental oxygen. (4) Anemia in chronic kidney disease Status: Acute Plan to address problem: Get stool for occult blood. Follow-up hemoglobin. Transfuse if it decreases to less than 7 g/dL outpatient symptomatic (5) Hypertensive chronic kidney disease with stage 1 through stage 4 chronic kidney disease, or unspecified chronic kidney disease Status: Acute Plan to address problem: Follow-up blood pressure on current medications. (6) Morbid obesity with BMI of 40.0-44.9, adult Status: Chronic
[2016-06-12] MEDS: LOVENOX SUB-Q SCH (09:02)
[2016-06-12] MEDS: ZESTRIL PO SCH (09:03)
[2016-06-12] MEDS: IMDUR PO SCH (09:03)
[2016-06-12] MEDS: HALFPRIN EC PO SCH (09:03)
[2016-06-12] MEDS: PROTONIX PO SCH (09:03)
[2016-06-12] MEDS: NEURONTIN PO SCH ×2 (09:05→13:18)
[2016-06-12] MEDS: COREG PO SCH (09:05)
[2016-06-12] MEDS: LYRICA PO SCH (09:05)
[2016-06-12] MEDS: NOVOLOG SUB-Q SCH ×2 (09:14→13:19)
[2016-06-12 09:44] LABS: Bilirubin,Total 0.3 mg/dL (0.1-1.2)
[2016-06-12] MEDS ORDERED: K-DUR PO SCH (10:00)
--- NOTE | 2016-06-12 12:00 | Progress Note ---
Assessment and Plan Continue diuretics and other management. - Patient Problems (1) Acute on chronic diastolic heart failure Current Visit: Yes Status: Acute (2) Elevation of cardiac enzymes Current Visit: Yes Status: Acute (3) Acute and chronic respiratory failure Current Visit: Yes Status: Acute Qualifiers: Respiratory failure complication: R (4) Acute kidney injury superimposed on CKD Current Visit: Yes Status: Acute (5) Obstructive sleep apnea Current Visit: Yes Status: Acute (6) Pneumonia Current Visit: Yes Status: Acute Qualifiers: Pneumonia type: P Aspiration pneumonia type: A Laterality: L Lung location: L (7) Anemia Current Visit: Yes Status: Acute Qualifiers: Anemia type: A Iron deficiency anemia type: I Vitamin B12 deficiency anemia type: V Folate deficiency anemia type: F Bone marrow failure anemia type: B Hemolytic anemia type: H Other causes of anemia: O (8) Pneumonia Current Visit: Yes Status: Acute Qualifiers: Pneumonia type: P Aspiration pneumonia type: A Laterality: L Lung location: L (9) Morbid obesity Current Visit: Yes Status: Chronic Qualifiers: Obesity type: O Subjective Date of service: 06/12/16 Principal diagnosis: acute on chronic diastolic heart failure Interval history: The patient is resting comfortably in bed. He feels better today. Sinus rhythm on the monitor. Objective Last Vital Signs Temp 98.9 F 06/12/16 08:00 Pulse 81 06/12/16 09:05 Resp 22 06/12/16 08:05 BP 127/59 06/12/16 09:05 Pulse Ox 99 06/12/16 08:00 - Physical Examination General: No Apparent Distress HEENT: Positive: EOMI, Normocephaly, Mucus Membranes Moist Neck: Positive: neck supple, trachea midline Cardiac: Positive: Reg Rate and Rhythm, S1/S2 Lungs: Positive: Decreased Breath Sounds Neuro: Positive: Grossly Intact Abdomen: Positive: Soft, Active Bowel Sounds. Negative: Tender Skin: Positive: Clear. Negative: Rash Musculoskeletal: Normal Range of Motion Extremities: Present: +1 Edema (in both legs) - Labs and Meds Cardiac Enzymes 06/12/16 Range/Units 06:41 AST 17 (5-40) units/L CBC 06/12/16 Range/Units 06:41 WBC 13.2 H (4.5-11.0) K/mm3 RBC 3.05 L (3.65-5.03) M/mm3 Hgb 8.0 L (11.8-15.2) gm/dl Hct 24.4 L (35.5-45.6) % Plt Count 212 (140-440) K/mm3 Lymph # 1.7 (1.2-5.4) K/mm3 Thayer # 0.9 H (0.0-0.8) K/mm3 Eos # 0.1 (0.0-0.4) K/mm3 Baso # 0.0 (0.0-0.1) K/mm3 Comprehensive Metabolic Panel 06/12/16 Range/Units 06:41 Sodium 137 (137-145) mmol/L Potassium 3.5 L (3.6-5.0) mmol/L Chloride 95.8 L (98-107) mmol/L Carbon Dioxide 27 (22-30) mmol/L BUN 55 H (9-20) mg/dL Creatinine 2.2 H (0.8-1.5) mg/dL Glucose 267 H (75-100) mg/dL Calcium 8.5 (8.4-10.2) mg/dL AST 17 (5-40) units/L ALT 13 (7-56) units/L Alkaline Phosphatase 63 (35-129) units/L Total Protein 6.7 (6.3-8.2) g/dL Albumin 3.3 L (3.9-5) g/dL - Imaging and Cardiology EKG: image reviewed Echo: report reviewed (04/2016 at [facility]: EF 60-65%) - Telemetry EKG Rhythm: Sinus Rhythm - EKG Sinus rhythms and dysrhythmias: sinus rhythm Repolarization changes or abnormalities: ST or T wave suggestive of ischemia
[2016-06-12 12:47] VITALS: BP 127/74
[2016-06-12] MEDS ORDERED: BUMEX IV SCH ×2 (13:00→14:00)
--- NOTE | 2016-06-13 05:45 | Discharge Summary ---
Providers - Providers Date of Admission: 06/11/16 08:13 Attending physician: EMILY GASPAR 06/11/16 17:06 Consult to Physician [CONS] Routine Consulting Provider: JIMBO CHAVEZ Reason For Exam: arf Place consult to:: sachi Notified:: a service Phone number called:: [phone] Was contact made?: Yes If yes, spoke with:: azalea Time called:: 17:20 Primary care physician: [employer]PERVISOR Hospitalization Condition: Good Disposition: STILL A PATIENT Exam - Constitutional Vitals: Temp Pulse Resp BP Pulse Ox 97.6 F 80 17 127/74 98 06/12/16 12:46 06/12/16 14:08 06/12/16 14:03 06/12/16 12:46 06/12/16 12:46 Plan Follow up with: PRIMARY CARE, [Primary Care Provider] - 3-5 Days Prescriptions: Loratadine/Pseudoephedrine [Claritin-D 24Hr] 1 tab PO DAILY #30 tablet Prednisone [predniSONE 10 mg (6-Day Pack, 21 Tabs)] 10 mg PO .TAPER #1 tab.ds.pk
--- NOTE | 2016-06-15 08:55 | Query-Infection ---
Rey Scott [place] Date:__06/15/16 Relish Blender/CDS: Aram / Antonia Phone#:__[phone] Exercise your independent professional judgment when responding to this query. Questions asked do not imply a particular answer is desired or expected. We greatly appreciate your clarification on this issue. Clinical Documentation States: 45 year old male was admitted on 06/11/16. The H&P states " Pneumonia Current Visit: Yes Status: Acute Qualifiers: Pneumonia type: P Aspiration pneumonia type: A Laterality: L Lung location : L Plan to address problem: Will start Levaquin IV, follow cultures " WBC: 16.2(06/11/16) 13.2(06/12/16) Respiratory rate: 26 Pulse: 96 Lactic acid: 2.2 Clinical findings show: (please check applicable parameters) Infection, known /suspected, with some of the following indicators; Specify the infection: 3 General parameters [ ] Fever (core temp >38.30C or 100.40F) [ ] Hypothermia (core temp <36C) [ ] Heart rate >90 bpm [ ] Tachypnea: >20 bpm or pCO2 < 32 mmHg [ ] Altered mental status [ ] Significant edema / +ve fluid balance (>20 ml/kg 24 h) [ ] Hyperglycemia (Bl. glucose >110 mg/dl) w/o diabetes Inflammatory parameters [ ] Leukocytosis (white blood cell count >12,000/l) [ ] Leukopenia (white blood cell count <4,000/l) [ ] Bandemia (immature WBC > 10%) [ ] Leucocyte Left Shift [ ] Plasma procalcitonin>2 SD above the normal value Hemodynamic and tissue perfusion parameters [ ] Arterial hypotension(SBP <90 mmHg, MAP <70 mmHg,or a SBP drop >40 mmHg in adults) [ ] Hyperlactatemia (>3 mmol/l) [ ] Anion Gap (> 11mEG/l) [ ] Decreased capillary refill or mottling Organ dysfunction parameters [ ] Arterial hypoxemia (PaO2/FIO2 <300) [ ] Creatinine increase =0.5 mg/dl [ ] Acute oliguria (urine output <0.5 ml | kg |h or 45 mM/l for at least 2 hrs) [ ] Coagulation abnormalities (INR >1.5 or activated partial thromboplastin time >60 s) [ ] Ileus (absent rajesh wel sounds) [ ] Thrombocytopenia (platelet count <100,000/l) [ ] Hyperbilirubinemia (plasma total bilirubin >4 mg/dl) According to the clinical indications above, can Bacteremia be further specified? If so, please indicate below and in your Progress Notes and/ or Discharge Summary. Indicate if the condition was present on admission. PHYSICIAN RESPONSE: [x ] Sepsis [ ] Severe Sepsis [ ] Septic Shock [ ] Septicemia [ ] Sepsis now resolved [ ] SIRS due to non-infectious cause with organ dysfunction [ ] SIRS due to non-infectious cause without organ dysfunction [ ] Other: [ ] Comment/Explanation: Present on Admission: [ x] Yes (Y) [ ] Clinically undeterminable (W) [ ] No (N) [ ] Ruled Out Please also document response in your Progress Notes and/or Discharge Summary and indicate if the condition was present on admission Notes: SIRS/ SIRS WITH ORGAN DYSFUNCTION Systemic inflammatory response syndrome (SIRS) generally refers to the systemic response to trauma/german or other insult such as Acute Myocardial Infarction, Acute Pancreatitis, and Major Surgery with symptoms including fever, tachycardia , tachypnea, and leukocytosis (1). BACTEREMIA Presence of viable bacteria in the circulating blood (2). This term is reserved for patients that do not manifest above SIRS response. SEPTICEMIA Generally refers to a systemic disease associated with the presence of pathological microorganisms or toxins in the blood, which can include bacteria, viruses, fungi or other organisms (1). SEPSIS Generally refers to SIRS due infection (1). SEVERE SEPSIS Generally refers to sepsis associated with acute organ dysfunction (1). SEPTIC SHOCK Generally refers to circulatory failure associated with severe sepsis (2), and defined as hypotension or hypoperfusion despite adequate fluid resuscitation (1 hour) (3). REFERENCES: 1. [place] [employer]/Society of Critical Care Medicine Consensus Conference. Definitions for sepsis and organ failure and guidelines for the use of innovative therapies in sepsis. Critical Care Med 1992;20:864 - 74. 2. Christoph kulkarni MM, Mirna MP, Ike COY, Harmeet E, Sander D, Murray D, Ortiz J, [place] SM , Ramy JL, Landon G; International Sepsis Definitions Conference. 2001 SCCM/ESICM/ACCP/ATS/SIS International Sepsis Definitions Conference. Intensive Care Med. 2002 Apr;29(4):530-8. Epub 2002Jun 12. Review. PubMed PMID:[id number] 3. ICD-9-CM Official Guidelines for Coding and Reporting 4. Medscape Drugs, Diseases and Procedures references 5. [employer] Textbook of Internal Medicine. 18th Edition MTDD
== END 2016-06-12 15:53 | disposition home or self-care (01) | DRG 871 ==
LOC: ED 05:01 → 4A 08:13
PROVIDERS: ADMIT Internal Medicine; ATTEND Internal Medicine
PROC: 5A09357 Assistance with Respiratory Ventilation, Less than 24 Consecutive Hours, Continuous Positive Airway Pressure (ICD-10-PCS; principal; 2016-06-11)
DX: A41.9 Sepsis, unspecified organism (principal); I50.33 Acute on chronic diastolic (congestive) heart failure; J18.9 Pneumonia, unspecified organism; J96.20 Acute and chronic respiratory failure, unspecified whether with hypoxia or hypercapnia; N17.9 Acute kidney failure, unspecified; Z68.41 Body mass index [BMI] 40.0-44.9, adult; I13.0 Hypertensive heart and chronic kidney disease with heart failure and stage 1 through stage 4 chronic kidney disease, or unspecified chronic kidney disease; J44.1 Chronic obstructive pulmonary disease with (acute) exacerbation; J45.901 Unspecified asthma with (acute) exacerbation; F41.9 Anxiety disorder, unspecified; E11.22 Type 2 diabetes mellitus with diabetic chronic kidney disease; N18.3 Chronic kidney disease, stage 3 (moderate); J45.909 Unspecified asthma, uncomplicated; E78.00 Pure hypercholesterolemia, unspecified; E78.5 Hyperlipidemia, unspecified; G47.33 Obstructive sleep apnea (adult) (pediatric); E66.01 Morbid (severe) obesity due to excess calories; D63.1 Anemia in chronic kidney disease; Z79.899 Other long term (current) drug therapy; Z99.81 Dependence on supplemental oxygen
CPT/HCPCS: 36415; 71010; 80048; 80053; 80061; 82140; 82550; 82553; 82962; 83735; 83880; 84100; 84484; 85025; 85610; 85730; 87040; 93005; 93010; 94640; 94760; 96372; 99291; J0456; J0696; J1650; J1815; J1940; J7050

== ENCOUNTER 2016-07-13 15:36 | Emergency (ER) | payer MEDICARE ==
[2016-07-13] MEDS ORDERED: NACL 0.9% 500 ML 500 ML IV ONE (16:44)
[2016-07-13] MEDS ORDERED: ZOFRAN IV ONE ×2 (16:44→18:47)
--- NOTE | 2016-07-13 16:48 | Emergency Department Report ---
ED Dizziness HPI - General Chief Complaint: Dizziness Stated Complaint: FATIGUE/LOW BP Time Seen by Provider: 07/13/16 16:43 Source: patient, EMS Mode of arrival: Stretcher Limitations: No Limitations - History of Present Illness Initial Comments: 45-year-old male presents to the emergency department via EMS complaining of dizziness. Patient states that he was standing at the counter of a business when he began feeling lightheaded, like he might pass out. Patient did not lose consciousness. He states he was able to sit down, but was unable to get back up. EMS was called and found the patient to have a systolic blood pressure in the 80s. Fingerstick blood sugar by EMS was over 300. Upon arrival in the emergency department, the patient began having nausea and has vomited several times. He denies chest pain or difficulty breathing. There are no other complaints. MD Complaint: lightheadedness -: Sudden, This afternoon (just prior to arrival) Timing: sudden onset, constant Description: lightheadedness, nausea, near-syncope History of Same: No History of Trauma: No Severity: moderate Improves With: nothing Worsens With: nothing - Related Data Home Medications Medication Instructions Recorded Confirmed Last Taken Gabapentin [Neurontin] 600 mg PO TID 11/08/15 07/13/16 06/10/16 Clonidine HCl [Catapres] 0.3 mg PO BID 02/12/16 07/13/16 06/10/16 Ergocalciferol(Vitamin D2)(Nf) 3,200 unit PO QWEEK 02/12/16 07/13/16 06/10/16 [Vitamin D (Nf)] ISOSORBIDE MONOnitrate [Imdur ER] 60 mg PO QDAY 02/12/16 07/13/16 06/10/16 Omeprazole 40 mg PO DAILY 02/12/16 07/13/16 06/10/16 Oxycodone HCl/Acetaminophen 1 each PO Q8HR PRN 02/12/16 07/13/16 06/10/16 [Percocet 10/325 mg] clonazePAM 1 mg PO BID PRN 02/12/16 07/13/16 06/10/16 Insulin Glargine [Lantus VIAL] 100 unit SUB-Q QHS 06/11/16 07/13/16 06/10/16 Previous Rx's Medication Instructions Recorded Last Taken Type Insulin Aspart [NovoLOG Flexpen] 60 unit SQ TID #10 ml 07/06/14 06/10/16 Rx ALBUTEROL Inhaler [ProAir HFA 2 puff IH QID PRN #1 inha 02/08/15 06/10/16 Rx Inhaler] Aspirin EC [Aspirin Enteric Coated 81 mg PO QDAY #30 tablet 02/08/15 06/10/16 Rx TAB] Carvedilol [Coreg] 25 mg PO BID #60 tablet 02/08/15 06/10/16 Rx Simvastatin [Zocor TAB] 40 mg PO QHS #30 tablet 02/08/15 06/10/16 Rx Bumetanide [Bumex] 1 mg PO BID #60 tab 02/19/16 06/10/16 Rx Loratadine/Pseudoephedrine 1 tab PO DAILY #30 tablet 06/12/16 Unknown Rx [Claritin-D 24Hr] Prednisone [predniSONE 10 mg 10 mg PO .TAPER #1 tab.ds.pk 06/12/16 Unknown Rx (6-Day Pack, 21 Tabs)] Allergies Allergy/AdvReac Type Severity Reaction Status Date / Time No Known Allergies Allergy Verified 07/13/16 15:42 ED Review of Systems ROS: Stated complaint: FATIGUE/LOW BP Other details as noted in HPI Comment: All other systems reviewed and negative Cardiovascular: syncope (lightheadedness, no loss of consciousness) Gastrointestinal: nausea, vomiting ED Past Medical Hx - Past Medical History Previous Medical History?: Yes Hx Hypertension: Yes Hx Heart Attack/AMI: Yes (2009, last June 2015) Hx Congestive Heart Failure: Yes Hx Diabetes: Yes Hx Liver Disease: No Hx Renal Disease: Yes (Stage 3) Hx Kidney Stones: Yes (chronic) Hx Asthma: Yes Hx COPD: Yes Hx HIV: No Additional medical history: high cholestrerol - Surgical History Past Surgical History?: Yes Hx Coronary Stent: Yes - Family History Family history: diabetes - Social History Smoking Status: Never Smoker Substance Use Type: None - Medications Home Medications: Home Medications Medication Instructions Recorded Confirmed Last Taken Type Insulin Aspart [NovoLOG Flexpen] 60 unit SQ TID #10 ml 07/06/14 07/13/16 Rx ALBUTEROL Inhaler [ProAir HFA 2 puff IH QID PRN #1 inha 02/08/15 07/13/1606/10/ 17 Rx Inhaler] Aspirin EC [Aspirin Enteric Coated 81 mg PO QDAY #30 tablet 02/08/15 07/13/16 Rx TAB] Carvedilol [Coreg] 25 mg PO BID #60 tablet 02/08/15 07/13/16 06/10/16 Rx Simvastatin [Zocor TAB] 40 mg PO QHS #30 tablet 02/08/15 07/13/16 06/10/16 Rx Gabapentin [Neurontin] 600 mg PO TID 11/08/15 07/13/16 06/10/16 History Clonidine HCl [Catapres] 0.3 mg PO BID 02/12/16 07/13/16 06/10/16 History Ergocalciferol(Vitamin D2)(Nf) 3,200 unit PO QWEEK 02/12/16 07/13/16 06/10/16 History [Vitamin D (Nf)] ISOSORBIDE MONOnitrate [Imdur ER] 60 mg PO QDAY 02/12/16 07/13/16 06/10/16 History Omeprazole 40 mg PO DAILY 02/12/16 07/13/16 06/10/16 History Oxycodone HCl/Acetaminophen 1 each PO Q8HR PRN 02/12/16 07/13/16 06/10/16 History [Percocet 10/325 mg] clonazePAM 1 mg PO BID PRN 02/12/16 07/13/16 06/10/16 History Bumetanide [Bumex] 1 mg PO BID #60 tab 02/19/16 07/13/16 06/10/16 Rx Insulin Glargine [Lantus VIAL] 100 unit SUB-Q QHS 06/11/16 07/13/16 06/10/16 History Loratadine/Pseudoephedrine 1 tab PO DAILY #30 tablet 06/12/16 07/13/16 Unknown Rx [Claritin-D 24Hr] Prednisone [predniSONE 10 mg 10 mg PO .TAPER #1 tab.ds.pk 06/12/16 07/13/16 Unknown Rx (6-Day Pack, 21 Tabs)] ED Physical Exam - General Limitations: No Limitations General appearance: alert, in no apparent distress - Head Head exam: Present: atraumatic, normocephalic - Eye Eye exam: Present: normal appearance, PERRL, EOMI - ENT ENT exam: Present: normal exam, normal orophraynx, mucous membranes moist - Neck Neck exam: Present: normal inspection, full ROM. Absent: tenderness - Respiratory Respiratory exam: Present: normal lung sounds bilaterally. Absent: respiratory distress - Cardiovascular Cardiovascular Exam: Present: regular rate, normal rhythm, normal heart sounds - GI/Abdominal GI/Abdominal exam: Present: soft, normal bowel sounds. Absent: distended, tenderness - Extremities Exam Extremities exam: Present: normal inspection, full ROM. Absent: tenderness - Back Exam Back exam: Present: normal inspection, full ROM. Absent: tenderness - Neurological Exam Neurological exam: Present: alert, oriented X3. Absent: motor sensory deficit - Skin Skin exam: Present: warm, dry, intact ED Course Vital Signs 07/13/16 07/13/16 16:54 17:53 Temperature 98.1 F Pulse Rate 72 74 Respiratory 16 16 Rate Blood Pressure 102/56 111/64 [Left] O2 Sat by Pulse 98 95 Oximetry ED Medical Decision Making - Lab Data Result diagrams: 07/13/16 16:53 07/13/16 16:53 - EKG Data -: EKG Interpreted by Me EKG shows normal: sinus rhythm, axis, intervals, QRS complexes Rate: normal - EKG Data When compared to previous EKG there are: no significant change Interpretation: unchanged when compared t (02/12/2016), other (inferior and lateral T-wave inversions) - Medical Decision Making Lab results reviewed and discussed with the patient. Patient reports feeling better with medication. Patient's troponin is elevated and his creatinine has worsened. [facility] will [facility]. 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 Patient is to be admitted by the hospitalist. - Differential Diagnosis ACS, arrhythmia, DKA, hyperglycemia Critical care attestation.: If time is entered above; I have spent that time in minutes in the direct care of this critically ill patient, excluding procedure time. ED Disposition Clinical Impression: Acute kidney injury superimposed on chronic kidney disease, Elevation of cardiac enzymes Disposition: OP ADMITTED IP TO THIS HOSP Is pt being admited?: Yes Condition: Stable Referrals: PRIMARY CARE, [Primary Care Provider] - 3-5 Days Time of Disposition: 18:48
[2016-07-13 17:22] LABS: Basophils % (Auto) 0.6 % (0.0-1.8); Eosinophils % (Auto) 1.1 % (0.0-4.3); Hematocrit 36.9 % (35.5-45.6); Hemoglobin 12.5 gm/dl (11.8-15.2); Mean Corpuscular HGB Conc 34 % (32-34); Mean Corpuscular Hemoglobin 27 pg (28-32); Mean Corpuscular Volume 80 fl (84-94); Platelet Count 326 K/mm3 (140-440); Red Blood Count 4.64 M/mm3 (3.65-5.03); Red Cell Distribution Width 15.5 % (13.2-15.2); White Blood Count 7.1 K/mm3 (4.5-11.0)
[2016-07-13 17:46] LABS: Albumin 4.3 g/dL (3.9-5); Alkaline Phosphatase 87 units/L (35-129); Blood Urea Nitrogen 48 mg/dL (9-20); Calcium 9.8 mg/dL (8.4-10.2); Carbon Dioxide 24 mmol/L (22-30); Glucose 210 mg/dL (75-100); Sodium 132 mmol/L (137-145); Total Protein 8.6 g/dL (6.3-8.2)
[2016-07-13 18:23] LABS: Anion Gap 23 mmol/L; Potassium 4.3 mmol/L (3.6-5.0)
[2016-07-13 18:24] LABS: Alanine Aminotransferase 21 units/L (7-56)
[2016-07-13 19:01] LABS: Cholesterol 304 mg/dL (50-199); HDL Cholesterol 41 mg/dL (40-59); LDL Cholesterol,Direct TNR mg/dL (50-130); Triglycerides 418 mg/dL (2-149)
[2016-07-13 19:43] VITALS: BP 116/70
== END 2016-07-13 20:52 | disposition admitted as inpatient to this hospital (09) ==
LOC: ED 15:36
DX: I12.9 Hypertensive chronic kidney disease with stage 1 through stage 4 chronic kidney disease, or unspecified chronic kidney disease (principal); N18.3 Chronic kidney disease, stage 3 (moderate); R74.8 Abnormal levels of other serum enzymes; I25.2 Old myocardial infarction; I50.9 Heart failure, unspecified; E11.9 Type 2 diabetes mellitus without complications; J44.9 Chronic obstructive pulmonary disease, unspecified; J45.909 Unspecified asthma, uncomplicated; E78.00 Pure hypercholesterolemia, unspecified; Z79.4 Long term (current) use of insulin
CPT/HCPCS: 36415; 80053; 80061; 82962; 84484; 85025; 93005; 93010; 96361; 96374; 96376; 99284; J2405; J7040

== ENCOUNTER 2016-10-16 16:49 | Inpatient (IN) | payer MEDICARE ==
[2016-10-16] MEDS ORDERED: ATROVENT IH ONE (18:36)
[2016-10-16] MEDS ORDERED: PROVENTIL IH ONE (18:36)
[2016-10-16] MEDS ORDERED: SUBLIMAZE IV ONE (18:37)
--- NOTE | 2016-10-16 18:37 | Emergency Department Report ---
ED General Adult HPI - General Chief complaint: Dyspnea/Respdistress Stated complaint: ALIS Time Seen by Provider: 10/16/16 18:01 Source: patient, EMS, RN notes reviewed, old records reviewed Mode of arrival: Stretcher Limitations: No Limitations - History of Present Illness Initial comments: This is a 46-year-old male. I have evaluated him in the past. Nephrology: Dr Hamilton Cardiology: Dr Gil Pulmonary: Dr Kaiser Past medical history includes congestive heart failure, renal insufficiency, obesity, chronic respiratory failure, chronic orthopnea, had an echocardiogram which demonstrated an ejection fraction of 50-55%. Patient presents to the ER with abdominal bloating, lower extremity swelling, unintentional weight gain, shortness of breath, and orthopnea. Symptoms are constant. They get worse with physical exertion, palpation, decreased with rest. Patient reports pain from his abdomen down to his bilateral lower extremities. The patient reports compliance with medications, and reports he has increased his Lasix to 80 mg twice daily over the past 2 days. He denies dietary indiscretions. -: Gradual Location: abdomen, left, right, lower extremity Consistency: constant Worsens with: movement Associated Symptoms: shortness of breath, weakness - Related Data Home Medications Medication Instructions Recorded Confirmed Last Taken Gabapentin [Neurontin] 600 mg PO TID 11/08/15 10/16/16 06/10/16 ISOSORBIDE MONOnitrate [Imdur ER] 60 mg PO QDAY 02/12/16 10/16/16 06/10/16 Omeprazole 40 mg PO DAILY 02/12/16 10/16/16 06/10/16 Insulin Glargine [Lantus VIAL] 100 unit SUB-Q QHS 06/11/16 10/16/16 06/10/16 Previous Rx's Medication Instructions Recorded Last Taken Type ALBUTEROL Inhaler [ProAir HFA 2 puff IH QID PRN #1 inha 02/08/15 06/10/16 Rx Inhaler] Carvedilol [Coreg] 25 mg PO BID #60 tablet 02/08/15 06/10/16 Rx Simvastatin [Zocor TAB] 40 mg PO QHS #30 tablet 02/08/15 06/10/16 Rx Aspirin EC [Aspirin Enteric Coated 81 mg PO QDAY tablet 10/19/16 Unknown Rx TAB] Bumetanide [Bumex 1 mg tab] 1 mg PO QDAY #30 tablet 10/19/16 Unknown Rx Nitroglycerin [Nitrostat] 0.4 mg SL .Q5MIN PRN #30 tablet 10/19/16 Unknown Rx cloNIDine [Catapres] 0.3 mg PO Q8HR tablet 10/19/16 Unknown Rx clonazePAM [KlonoPIN] 1 mg PO BID PRN #60 tablet 10/19/16 Unknown Rx oxyCODONE [Roxicodone TAB] 5 mg PO Q8H PRN #30 tablet 10/19/16 Unknown Rx Allergies Allergy/AdvReac Type Severity Reaction Status Date / Time No Known Allergies Allergy Verified 07/13/16 15:42 ED Review of Systems ROS: Stated complaint: ALIS Other details as noted in HPI Constitutional: malaise, weakness. denies: fever Eyes: denies: vision change ENT: denies: epistaxis Respiratory: shortness of breath, wheezing Cardiovascular: edema Gastrointestinal: abdominal pain Musculoskeletal: joint swelling, arthralgia, myalgia Skin: denies: lesions Neurological: weakness ED Past Medical Hx - Past Medical History Hx Hypertension: Yes Hx Heart Attack/AMI: Yes (2009, last June 2015) Hx Congestive Heart Failure: Yes Hx Diabetes: Yes Hx Liver Disease: No Hx Renal Disease: Yes (Stage 3) Hx Kidney Stones: Yes (chronic) Hx Asthma: Yes Hx COPD: Yes Hx HIV: No Additional medical history: high cholestrerol - Surgical History Hx Coronary Stent: Yes - Social History Smoking Status: Unknown if ever smoked - Medications Home Medications: Home Medications Medication Instructions Recorded Confirmed Last Taken Type ALBUTEROL Inhaler [ProAir HFA 2 puff IH QID PRN #1 inha 02/08/15 10/16/16 Rx Inhaler] Carvedilol [Coreg] 25 mg PO BID #60 tablet 02/08/15 10/16/16 06/10/16 Rx Simvastatin [Zocor TAB] 40 mg PO QHS #30 tablet 02/08/15 10/16/16 06/10/16 Rx Gabapentin [Neurontin] 600 mg PO TID 11/08/15 10/16/16 06/10/16 History ISOSORBIDE MONOnitrate [Imdur ER] 60 mg PO QDAY 02/12/16 10/16/16 06/10/16 History Omeprazole 40 mg PO DAILY 02/12/16 10/16/16 06/10/16 History Insulin Glargine [Lantus VIAL] 100 unit SUB-Q QHS 06/11/16 10/16/16 06/10/16 History Aspirin EC [Aspirin Enteric Coated 81 mg PO QDAY tablet 10/19/16 Unknown Rx TAB] Bumetanide [Bumex 1 mg tab] 1 mg PO QDAY #30 tablet 10/19/16 Unknown Rx Nitroglycerin [Nitrostat] 0.4 mg SL .Q5MIN PRN #30 tablet 10/19/16 Unknown Rx cloNIDine [Catapres] 0.3 mg PO Q8HR tablet 10/19/16 Unknown Rx clonazePAM [KlonoPIN] 1 mg PO BID PRN #60 tablet 10/19/16 Unknown Rx oxyCODONE [Roxicodone TAB] 5 mg PO Q8H PRN #30 tablet 10/19/16 Unknown Rx ED Physical Exam - General Limitations: No Limitations General appearance: alert, obese - Head Head exam: Present: atraumatic, normocephalic - Eye Eye exam: Present: normal appearance, EOMI. Absent: nystagmus - ENT ENT exam: Present: normal exam, normal orophraynx, mucous membranes moist, normal external ear exam - Neck Neck exam: Present: normal inspection, full ROM. Absent: tenderness, meningismus - Respiratory Respiratory exam: Present: respiratory distress, wheezes, rhonchi - Cardiovascular Cardiovascular Exam: Present: regular rate, normal rhythm, normal heart sounds. Absent: bradycardia, tachycardia, irregular rhythm, systolic murmur, diastolic murmur, rubs, gallop - GI/Abdominal GI/Abdominal exam: Present: soft, normal bowel sounds. Absent: distended, tenderness, guarding, rebound, rigid, pulsatile mass - Rectal Rectal exam: Present: deferred - Extremities Exam Extremities exam: Present: normal inspection, normal capillary refill, pedal edema, other (there is 3+ edema in the lower extremities. Abdominal anasarca noted). Absent: calf tenderness - Back Exam Back exam: Present: normal inspection, full ROM. Absent: paraspinal tenderness - Neurological Exam Neurological exam: Present: alert, oriented X3, other (Extraocular movements intact. Tongue midline. No facial droop. Facial sensation intact to light touch in the V1, V2, V3 distribution bilaterally. 5 and 5 strength in 4 extremities.. Sensation is intact to light touch in 4 extremities.). Absent: motor sensory deficit - Psychiatric Psychiatric exam: Present: normal affect, normal mood - Skin Skin exam: Present: warm, dry, intact, normal color. Absent: rash ED Course Vital Signs 10/16/16 10/16/16 10/16/16 17:46 17:56 18:23 Temperature 97.7 F Pulse Rate 95 H 93 H Pulse Rate [ Anterior Bilateral Throughout] Respiratory 30 H 20 Rate Respiratory Rate [Anterior Bilateral Throughout] Blood Pressure 166/87 166/87 O2 Sat by Pulse 100 100 Oximetry 10/16/16 10/16/16 10/16/16 18:56 19:00 19:09 Temperature Pulse Rate 87 86 Pulse Rate [ 86 Anterior Bilateral Throughout] Respiratory 20 19 Rate Respiratory 18 Rate [Anterior Bilateral Throughout] Blood Pressure 187/106 O2 Sat by Pulse 100 100 Oximetry 10/16/16 10/16/16 10/16/16 19:16 19:17 19:30 Temperature Pulse Rate 88 86 90 Pulse Rate [ Anterior Bilateral Throughout] Respiratory 17 18 21 Rate Respiratory Rate [Anterior Bilateral Throughout] Blood Pressure 187/106 187/106 198/106 O2 Sat by Pulse 100 100 100 Oximetry 10/16/16 10/16/16 10/16/16 19:40 19:46 20:00 Temperature Pulse Rate 88 103 H Pulse Rate [ 88 Anterior Bilateral Throughout] Respiratory 17 25 H 38 H Rate Respiratory 18 Rate [Anterior Bilateral Throughout] Blood Pressure 187/106 201/101 O2 Sat by Pulse 100 100 100 Oximetry 10/16/16 10/16/16 10/16/16 20:16 20:30 20:46 Temperature Pulse Rate 88 85 85 Pulse Rate [ Anterior Bilateral Throughout] Respiratory 26 H 19 13 Rate Respiratory Rate [Anterior Bilateral Throughout] Blood Pressure 201/101 167/87 167/87 O2 Sat by Pulse 100 100 100 Oximetry 10/16/16 10/16/16 10/16/16 21:00 21:16 21:30 Temperature Pulse Rate 87 92 H 89 Pulse Rate [ Anterior Bilateral Throughout] Respiratory 14 18 17 Rate Respiratory Rate [Anterior Bilateral Throughout] Blood Pressure 158/85 158/85 158/85 O2 Sat by Pulse 100 100 100 Oximetry 10/16/16 10/16/16 10/16/16 21:46 22:00 22:16 Temperature Pulse Rate 86 87 92 H Pulse Rate [ Anterior Bilateral Throughout] Respiratory 14 16 15 Rate Respiratory Rate [Anterior Bilateral Throughout] Blood Pressure 161/89 165/81 165/81 O2 Sat by Pulse 100 100 96 Oximetry 10/16/16 10/16/16 10/16/16 22:17 22:30 22:46 Temperature Pulse Rate 86 88 88 Pulse Rate [ Anterior Bilateral Throughout] Respiratory 16 21 Rate Respiratory Rate [Anterior Bilateral Throughout] Blood Pressure 161/89 155/80 165/81 O2 Sat by Pulse 100 100 Oximetry 10/16/16 10/16/16 10/16/16 23:00 23:16 23:30 Temperature Pulse Rate 82 77 74 Pulse Rate [ Anterior Bilateral Throughout] Respiratory 20 21 15 Rate Respiratory Rate [Anterior Bilateral Throughout] Blood Pressure 131/72 155/80 113/52 O2 Sat by Pulse 100 100 100 Oximetry 10/16/16 10/16/16 10/17/16 23:40 23:46 00:00 Temperature Pulse Rate 75 73 73 Pulse Rate [ Anterior Bilateral Throughout] Respiratory 21 26 H 23 Rate Respiratory Rate [Anterior Bilateral Throughout] Blood Pressure 131/72 131/72 95/31 O2 Sat by Pulse 100 100 100 Oximetry 10/17/16 10/17/16 10/17/16 00:16 00:30 00:46 Temperature Pulse Rate 74 75 74 Pulse Rate [ Anterior Bilateral Throughout] Respiratory 21 18 20 Rate Respiratory Rate [Anterior Bilateral Throughout] Blood Pressure 95/31 116/57 95/31 O2 Sat by Pulse 100 100 100 Oximetry 10/17/16 10/17/16 10/17/16 01:00 01:16 01:23 Temperature Pulse Rate 89 95 H 75 Pulse Rate [ Anterior Bilateral Throughout] Respiratory 28 H 27 H Rate Respiratory Rate [Anterior Bilateral Throughout] Blood Pressure 128/68 116/57 O2 Sat by Pulse 100 100 Oximetry - Reevaluation(s) Reevaluation #1: 10/16/16 19:53 case discussed with cardiology, Dr. Pierce who agrees with plan of care. He will see the patient in the morning as a consult. ED Medical Decision Making - Lab Data Result diagrams: 10/19/16 07:04 10/19/16 07:04 Vital Signs 10/16/16 10/16/16 10/16/16 17:46 17:56 18:23 Temperature 97.7 F Pulse Rate 95 H 93 H Respiratory 30 H 20 Rate Blood Pressure 166/87 166/87 O2 Sat by Pulse 100 100 Oximetry - EKG Data -: EKG Interpreted by Me - EKG Data 10/16/16 19:09 Normal sinus, 94 beats per minute, QTC prolonged at 470 ms, atrial enlargement, T wave inversions 1 in aVL, abnormal EKG, not consistent with STEMI, nonspecific changes when compared to prior EKG from June 2016 10/16/16 19:10 - Radiology Data Radiology results: image reviewed interpreted by me: X-ray of the chest demonstrates cardiomegaly, congestive heart failure - Medical Decision Making Dr Callahan accepts patient to his service Critical Care Time: Yes Critical care time in (mins) excluding proc time.: 35 Critical care attestation.: If time is entered above; I have spent that time in minutes in the direct care of this critically ill patient, excluding procedure time. Critical Care Time: Critical care time includes multiple bedside evaluations, interpretation of laboratory studies, radiology studies, time spent managing a patient of multifactorial respiratory failure, requiring consultation with cardiology, and noninvasive ventilation and hospital medicine. This does not include procedure time. ED Disposition Clinical Impression: Respiratory failure, Morbid obesity CHF (congestive heart failure) Qualifiers: Congestive heart failure type: systolic Disposition: - OP ADMIT IP TO THIS HOSP Is pt being admited?: Yes Does the pt Need Aspirin: Yes Condition: Stable
--- NOTE | 2016-10-16 19:07 | XRay Report ---
FINAL REPORT PROCEDURE: XR CHEST 1V AP TECHNIQUE: Chest radiograph anteroposterior view. CPT 15294 HISTORY: Dyspnea COMPARISON: Chest x-ray dated June 11, 2016. FINDINGS: CHF is present with probable pulmonary edema. Findings are very similar to prior study. Study is limited due to patient's size and portable technique. No pleural effusion or pneumothorax is seen. IMPRESSION: CHF and pulmonary edema are suspected.
[2016-10-16 19:09] LABS: BUN/Creatinine Ratio 25.23; Calcium 8.8 mg/dL (8.4-10.2); Potassium 4.3 mmol/L (3.6-5.0)
[2016-10-16 19:11] LABS: Hematocrit 28.3 % (35.5-45.6); INR 0.99 (0.87-1.13); Mean Corpuscular HGB Conc 32 % (32-34); Mean Corpuscular Hemoglobin 26 pg (28-32); Mean Corpuscular Volume 82 fl (84-94); Platelet Count 259 K/mm3 (140-440); Red Blood Count 3.43 M/mm3 (3.65-5.03); Red Cell Distribution Width 15.5 % (13.2-15.2); White Blood Count 7.6 K/mm3 (4.5-11.0)
[2016-10-16 19:12] LABS: Partial Thromboplastin Time 34.3 Sec. (24.2-36.6)
[2016-10-16] MEDS ORDERED: BABY ASPIRIN PO ONE (19:12)
[2016-10-16] MEDS ORDERED: LASIX IV ONE (19:13)
--- NOTE | 2016-10-16 19:23 | Admit Criteria Form ---
Admission Criteria Documentation: HEART FAILURE Clinical Indications for Admission to Inpatient Care (Place 'X' for any and all applicable criteria): Admission is indicated by 1 or more of the following(1)(2)(3)(4)(5)(6)(7) [ ]I. Hemodynamic instability(9) [ ]II. Severe electrolyte abnormalities requiring inpatient care [ ]III. Cardiac arrhythmias of immediate concern [ ]IV. Precipitating cause for acute decompensation (eg, pneumonia, pulmonary embolism) requires inpatient care [ ]V. Acute cardiac ischemia causing or associated with failure (Also use Angina or Myocardial Infarction as appropriate) [X]. Pulmonary edema that is very severe (eg, mechanical ventilation needed, imminent or likely, need for 100% oxygen to keep oxygen saturation above 90%) [ ]VII. Massive skin edema (anasarca) with complications (eg tissue breakdown with infection, inability to void due to edema)[A] (15) [ ]VIIl. Inpatient admission required [B]rather than observation care (See Heart Failure: Observation Care as appropriate) because of 1 or more of the following(16)(17): [ ]a) Pulmonary edema that is severe or worsening as indicated by ALL of the following: [ ]1) New need for oxygen therapy to keep oxygen saturation above 90% (or increased FiO2 need from baseline) [ ]2) Has not improved sufficiently with emergency department or observation care IV diuretics or other heart failure treatments[C] [ ]b) Altered mental status that is severe or persistent [ ]c) Increased creatinine (new on laboratory test) with reduction of more than 50% in estimated glomerular filtration rate from baseline. [ ]d) Progressively (ongoing) rising creatinine (known from past laboratory test) with reduction of more than 25% in estimated glomerular filtration rate from baseline [ ]e) Acute renal insufficiency (progressively (ongoing) rising creatinine (known from past laboratory test) with reduction of more than 25% in estimated glomerular filtration rate from baseline. [ ]f) Acute renal failure [ ]g) Acute peripheral ischemia (e.g., examination shows pulseless, cool, mottled, or cyanotic extremity) [ ]h) Oyxgen administration or respiratory treatments have been needed for over 24 hours that are performable only in acute inpatient setting [ ]i) Pulmonary artery catheter monitoring [ ]j) Other condition, treatment or monitoring requiring inpatient admission Extended stay beyond goal length of stay may be needed for(1)(14)(38)(42)(45) [ ]a) Cardiac ischemia, confirmed or suspected as precipitant (1) [ ]b) Cardiogenic shock (2)(46)(47)(48)(49) [ ]c) Acute renal failure [ ]d) Stage IV chronic kidney disease (estimated glomerular filtration rate of less than 30 mL/min/1.73m2 (0.50 mL/sec/1.73m2), and not previously on chronic dialysis [ ]e) Respiratory failure (eg, need for noninvasive or invasive ventilation) ( 50) [ ]f) Concomitant pneumonia or significant electrolyte abnormality (eg, severe hyponatremia) (51) [ ]g) Newly diagnosed (new onset) atrial fibrillation (52)(53) The original [employer] content created by [employer] has been revised. The portions of the content which have been revised are identified through the use of italic text or in bold, and [facility] has neither reviewed nor approved the modified material. All other unmodified content is copyright [facility]. Please see references footnoted in the original [facility] edition 2017 Admission Criteria Met: Yes
--- NOTE | 2016-10-16 19:24 | History and Physical Report ---
History of Present Illness Chief complaint: I cant breathe doc, and i feel tight History of present illness: 46 YO Male with Obesity, ALBINO, HTN, TN, CHF, DM, CAD S/P Stent Placement, CKD-3, COPD, Asthma, HLD, presents to ED for evaluation. Pt states that he has experienced leg swelling and difficulty breathing for the past week with worsening symptoms over the past 2 days. Pt states that he also feels bloated. Pt acknowledges unintentional weight gain, orthopnea,PND. Pt denies fever, chills, CP, palpitations, NVD, syncope, medication noncompliance, productive cough, or recent ill contacts. Past History Past Medical History: acute TN, CAD, COPD, diabetes, heart failure, hypertension , hyperlipidemia, renal failure Past Surgical History: Other (stent placement) Social history: , lives with family. denies: smoking, alcohol abuse, prescription drug abuse Family history: diabetes, hypertension Medications and Allergies Allergies Allergy/AdvReac Type Severity Reaction Status Date / Time No Known Allergies Allergy Verified 07/13/16 15:42 Home Medications Medication Instructions Recorded Confirmed Last Taken Type Insulin Aspart [NovoLOG Flexpen] 60 unit SQ TID #10 ml 07/06/14 07/13/16 Rx ALBUTEROL Inhaler [ProAir HFA 2 puff IH QID PRN #1 inha 02/08/15 07/13/16 Rx Inhaler] Aspirin EC [Aspirin Enteric Coated 81 mg PO QDAY #30 tablet 02/08/15 07/13/16 Rx TAB] Carvedilol [Coreg] 25 mg PO BID #60 tablet 02/08/15 07/13/16 06/10/16 Rx Simvastatin [Zocor TAB] 40 mg PO QHS #30 tablet 02/08/15 07/13/16 06/10/16 Rx Gabapentin [Neurontin] 600 mg PO TID 11/08/15 07/13/16 06/10/16 History Clonidine HCl [Catapres] 0.3 mg PO BID 02/12/16 07/13/16 06/10/16 History Ergocalciferol(Vitamin D2)(Nf) 3,200 unit PO QWEEK 02/12/16 07/13/16 06/10/16 History [Vitamin D (Nf)] ISOSORBIDE MONOnitrate [Imdur ER] 60 mg PO QDAY 02/12/16 07/13/16 06/10/16 History Omeprazole 40 mg PO DAILY 02/12/16 07/13/16 06/10/16 History Oxycodone HCl/Acetaminophen 1 each PO Q8HR PRN 02/12/16 07/13/16 06/10/16 History [Percocet 10/325 mg] clonazePAM 1 mg PO BID PRN 02/12/16 07/13/16 06/10/16 History Bumetanide [Bumex] 1 mg PO BID #60 tab 02/19/16 07/13/16 06/10/16 Rx Insulin Glargine [Lantus VIAL] 100 unit SUB-Q QHS 06/11/16 07/13/16 06/10/16 History Loratadine/Pseudoephedrine 1 tab PO DAILY #30 tablet 06/12/16 07/13/16 Unknown Rx [Claritin-D 24Hr] Prednisone [predniSONE 10 mg 10 mg PO .TAPER #1 tab.ds.pk 06/12/16 07/13/16 Unknown Rx (6-Day Pack, 21 Tabs)] Review of Systems All systems: negative Constitutional: weight gain, no weight loss Ears, nose, mouth and throat: no ear pain Cardiovascular: orthopnea, shortness of breath, paroxysmal nocturnal dyspnea, leg edema, no chest pain Respiratory: no cough Gastrointestinal: no abdominal pain Genitourinary Male: no dysuria Rectal: no pain Musculoskeletal: no neck stiffness Integumentary: no rash Neurological: no seizures Psychiatric: no anxiety Endocrine: no heat intolerance, no excessive sweating Hematologic/Lymphatic: no easy bruising Allergic/Immunologic: no urticaria Exam - Constitutional Vitals: Temp Pulse Resp BP Pulse Ox 97.7 F 86 18 187/106 100 10/16/16 18:23 10/16/16 19:17 10/16/16 19:17 10/16/16 19:10/16/16 19:17 General appearance: Present: mild distress, obese - EENT Eyes: Present: PERRL ENT: hearing intact, clear oral mucosa - Neck Neck: Present: supple, normal ROM - Respiratory Respiratory effort: labored Respiratory: bilateral: diminished - Cardiovascular Heart Sounds: Present: S1 & S2. Absent: rub, click - Extremities Extremities: pulses symmetrical, No edema Peripheral Pulses: within normal limits - Abdominal General gastrointestinal: Present: soft, non-tender, non-distended, normal bowel sounds Male genitourinary: Present: normal - Integumentary Integumentary: Present: clear, warm, dry - Musculoskeletal Musculoskeletal: generalized weakness - Psychiatric Psychiatric: appropriate mood/affect, intact judgment & insight - Neurologic Neurologic: CNII-XII intact, moves all extremities Results - Labs CBC & Chem 7: 10/16/16 18:38 10/16/16 18:38 Labs: Abnormal lab results 10/16/16 10/16/16 10/16/16 Range/Units 18:36 18:38 18:38 RBC 3.43 L (3.65-5.03) M/mm3 Hgb 9.0 L (11.8-15.2) gm/dl Hct 28.3 L (35.5-45.6) % MCV 82 L (84-94) fl MCH 26 L (28-32) pg RDW 15.5 H (13.2-15.2) % BUN 53 H (9-20) mg/dL Creatinine 2.1 H (0.8-1.5) mg/dL Glucose 347 H (75-100) mg/dL Troponin T 0.069 H (0.00-0.029) ng/mL NT-Pro-B Natriuret Pep 926.0 H (0-450) pg/mL Assessment and Plan - Patient Problems (1) CHF (congestive heart failure) Current Visit: Yes Status: Acute Qualifiers: Congestive heart failure type: systolic Congestive heart failure chronicity : C Plan to address problem: CHF protocol: Admit to telemetry, fluid restriction, monitor UOP q shift to attain negative fluid balance, afterload reduction, cardiology consulted, diuresis (2) Acute and chronic respiratory failure with hypoxia Current Visit: No Status: Acute Plan to address problem: Supplemental oxgen, nebs, aspiration precautions, NIPPV as clinically indicated , (3) Coronary artery disease Current Visit: No Status: Acute Qualifiers: Coronary Disease-Associated Artery/Lesion type: unspecified vessel or lesion type [place] vs. transplanted heart: cheesh-na heart Associated angina: with unstable angina Qualified Code(s): I25.110 - Atherosclerotic heart disease of che[place] coronary artery with unstable angina pectoris Plan to address problem: Medical management, no angina at this time, resume home medication (4) Diabetes Current Visit: No Status: Chronic Qualifiers: Diabetes mellitus type: type 2 Diabetes mellitus complication status: with neurologic complications Diabetes mellitus complication detail: with unspecified neuropathy Diabetic retinopathy severity: D Proliferative retinopathy type: P Diabetes mellitus macular edema: D Diabetes mellitus skilled nursing insulin use: D Laterality: L Chronic kidney disease stage: C Plan to address problem: ADA diet, insulin, accu check (5) Hyperlipidemia Current Visit: No Status: Chronic Qualifiers: Hyperlipidemia type: H Plan to address problem: continue statin therapy (6) Hypertension Current Visit: No Status: Chronic Qualifiers: Hypertension type: essential hypertension Qualified Code(s): I10 - Essential (primary) hypertension Plan to address problem: monitor bp q shift, resume home medication (7) DVT prophylaxis Current Visit: No Status: Acute
[2016-10-16] MEDS ORDERED: NON-FORMULARY (Oxycodone Hcl/Acetaminophen [Percocet 10/325 Mg] 1 EACH) PO PRN (19:37)
[2016-10-16] MEDS ORDERED: PROAIR IH PRN (19:37)
[2016-10-16] MEDS ORDERED: NON-FORMULARY (Clonazepam [Clonazepam] 1 MG) PO PRN (19:37)
[2016-10-16] MEDS ORDERED: PROVENTIL IH PRN (19:54)
[2016-10-16] MEDS ORDERED: PERCOCET 5/325 PO PRN (19:59)
[2016-10-16] MEDS ORDERED: ROXICODONE PO PRN (19:59)
[2016-10-16] MEDS ORDERED: INSULIN ASPART 60 UNIT SQ SCH (20:00)
[2016-10-16] MEDS: NEURONTIN PO SCH (20:08)
[2016-10-16] MEDS ORDERED: BUMEX PO SCH (22:00)
[2016-10-16] MEDS ORDERED: INSULIN GLARGINE 100 UNIT SUB-Q SCH (22:00)
[2016-10-16] MEDS ORDERED: NON-FORMULARY (Clonidine Hcl [Catapres] 0.3 MG) PO SCH (22:00)
[2016-10-16] MEDS: CATAPRES PO SCH (22:16)
[2016-10-16] MEDS: COREG PO SCH (22:17)
[2016-10-16] MEDS: ZOCOR PO SCH (22:19)
[2016-10-16] MEDS: LEVEMIR SUB-Q SCH (22:25)
[2016-10-17] MEDS ORDERED: NITROSTAT SL PRN (00:42)
[2016-10-17] MEDS ORDERED: MORPHINE IV PRN (00:42)
[2016-10-17 05:47] LABS: Creatine Kinase MB 4.1 ng/mL (0.0-4.0)
[2016-10-17] MEDS: CATAPRES PO SCH ×3 (06:04→21:41)
[2016-10-17] MEDS: NOVOLOG SUB-Q SCH ×3 (07:45→17:41)
[2016-10-17] MEDS: NEURONTIN PO SCH ×3 (08:00→21:41)
--- NOTE | 2016-10-17 08:54 | Consultation ---
History of Present Illness Consult date: 10/17/16 Requesting physician: JEFFY AVELAR Consult reason: congestive heart failure History of present illness: The pt is a 46 YO male with a past medical history significant for diastolic HF , HTN, DM, HLP, chronic respiratory failure (on home O2), ALBINO, CKD, morbid obesity. He has been seen in our office in the past by Dr. Daniel. He has been noncompliant with OP follow up. He presented with c/o progressively worsening HYDE and BLE edema x 4 days [employer]. He denies any chest pain, palpitations, orthopnea, PND, n/v, diaphoresis, dizziness, or syncope. He also reports a bout of BLE pain and abdominal pain yesterday AM at 4AM, which resolved after taking 800mg Ibuprofen at home. He reports compliance with his medication regimen and dietary restrictions. Admission CXR showed florid pulmonary edema; pro-BNP 926; admission BP 187/106. Echo done 07/2016 at [facility] showed EF 50 - 55%, moderate LVH. Echo done 06/2015 at [facility] showed EF 40-45%. Lexiscan MPI stress test done 11/2013 was negative for ischemia, EF 53%. Pt reportedly had LHC at [facility] in 06/2015 which showed normal coronaries per pt report. Past History Past Medical History: diabetes, heart failure, hypertension, hyperlipidemia, renal failure, other (chronic respiratory failure ) Social history: , lives with family. denies: smoking, alcohol abuse, prescription drug abuse Family history: diabetes, hypertension Medications and Allergies Allergies Allergy/AdvReac Type Severity Reaction Status Date / Time No Known Allergies Allergy Verified 07/13/16 15:42 Home Medications Medication Instructions Recorded Confirmed Last Taken Type ALBUTEROL Inhaler [ProAir HFA 2 puff IH QID PRN #1 inha 02/08/15 10/16/16 Rx Inhaler] Carvedilol [Coreg] 25 mg PO BID #60 tablet 02/08/15 10/16/16 06/10/16 Rx Simvastatin [Zocor TAB] 40 mg PO QHS #30 tablet 02/08/15 10/16/16 06/10/16 Rx Gabapentin [Neurontin] 600 mg PO TID 11/08/15 10/16/16 06/10/16 History Clonidine HCl [Catapres] 0.3 mg PO BID 02/12/16 10/16/16 06/10/16 History ISOSORBIDE MONOnitrate [Imdur ER] 60 mg PO QDAY 02/12/16 10/16/16 06/10/16 History Omeprazole 40 mg PO DAILY 02/12/16 10/16/16 06/10/16 History Oxycodone HCl/Acetaminophen 1 each PO Q8HR PRN 02/12/16 10/16/16 06/10/16 History [Percocet 10/325 mg] Bumetanide [Bumex] 1 mg PO BID #60 tab 02/19/16 10/16/16 06/10/16 Rx Insulin Glargine [Lantus VIAL] 100 unit SUB-Q QHS 06/11/16 10/16/16 06/10/16 History Active Meds: Active Medications Albuterol (Proventil) 2.5 mg IH Q4HRT PRN PRN Reason: Shortness Of Breath Aspirin (Halfprin Ec) 81 mg PO QDAY [facility] Aspirin (Aspirin) 325 mg PO QDAY [facility] Carvedilol (Coreg) 25 mg PO BID [facility] Last Admin: 10/16/16 22:17 Dose: 25 mg Clonazepam (Klonopin) 1 mg PO BID PRN PRN Reason: Anxiety Clonidine HCl (Catapres) 0.3 mg PO Q8HR [facility] Last Admin: 10/17/16 06:04 Dose: 0.3 mg Furosemide (Lasix) 40 mg IV QDAY [facility] Gabapentin (Neurontin) 600 mg PO TID [facility] Last Admin: 10/16/16 20:08 Dose: 600 mg Heparin Sodium (Porcine) (Heparin) 5,000 unit SUB-Q Q12HR [facility] Insulin Aspart (Novolog) 60 units SUB-Q AC [facility] Insulin Detemir (Levemir) 100 units SUB-Q QHS [facility] Last Admin: 10/16/16 22:25 Dose: 100 units Isosorbide Mononitrate (Imdur) 60 mg PO QDAY [facility] Loratadine/Pseudoephedrine Sulfate (Claritin-D 24hr) 1 each PO DAILY [facility] Miscellaneous Medication (Ergocalciferol(Vitamin D2)(Nf)) 3,200 unit PO QWEEK [facility] Morphine Sulfate (Morphine) 2 mg IV Q5MIN PRN PRN Reason: Chest Pain Nitroglycerin (Nitrostat) 0.4 mg SL .Q5MIN PRN PRN Reason: Chest Pain Oxycodone HCl (Roxicodone) 5 mg PO Q8H PRN PRN Reason: Pain, Moderate (4-6) Oxycodone/Acetaminophen (Percocet 5/325) 1 tab PO Q8H PRN PRN Reason: Pain, Moderate (4-6) Simvastatin (Zocor) 40 mg PO QHS [facility] Last Admin: 10/16/16 22:19 Dose: 40 mg Review of Systems Constitutional: no weight loss, no weight gain, no fever, no chills, no sweats Ears, nose, mouth and throat: no ear pain, no nose pain, no sinus pressure, no sinus pain Cardiovascular: edema, dyspnea on exertion, leg edema, decreased exercise tolerance, no chest pain, no orthopnea, no palpitations, no rapid/irregular heart beat, no syncope, no lightheadedness, no shortness of breath, no paroxysmal nocturnal dyspnea Respiratory: dyspnea on exertion, no cough, no shortness of breath, no congestion, no wheezing, no pain on inspiration Gastrointestinal: no nausea, no vomiting, no diarrhea, no constipation, no change in bowel habits Genitourinary Male: no dysuria, no hematuria, no flank pain, no discharge, no urinary frequency, no urinary hesitancy Musculoskeletal: no neck stiffness, no neck pain, no shooting arm pain, no arm numbness/tingling, no low back pain, no shooting leg pain, no leg numbness/ tingling, no redness of joints Integumentary: no rash, no pruritis, no redness, no sores, no wounds Neurological: no head injury, no paralysis, no weakness, no parathesias, no numbness, no tingling, no seizures, no syncope Psychiatric: no anxiety Endocrine: no cold intolerance, no heat intolerance Hematologic/Lymphatic: no easy bruising, no easy bleeding, no lymphadenopathy Allergic/Immunologic: no urticaria, no wheezing, no persistent infections Physical Examination Vital Signs Pulse Resp BP Pulse Ox 95 H 30 H 166/87 100 10/16/16 17:46 10/16/16 17:46 10/16/16 17:46 10/16/16 17:46 General appearance: no acute distress HEENT: Positive: PERRL, Normocephaly, Mucus Membranes Moist Neck: Positive: neck supple, trachea midline Cardiac: Positive: Reg Rate and Rhythm, S1/S2 Lungs: Positive: Decreased Breath Sounds, Rales (fine bibasilar), Oxygen Neuro: Positive: Grossly Intact, Cranial Nerve 2-12 Intact Abdomen: Positive: Unremarkable, Soft, Active Bowel Sounds. Negative: Tender Skin: Positive: Clear. Negative: Rash, Wound Musculoskeletal: No Pain, Normal Range of Motion Extremities: Present: +2 Edema (BLE pitting) Results 10/16/16 18:38 10/16/16 18:38 Cardiac Enzymes 10/17/16 Range/Units 05:01 CK-MB (CK-2) 4.1 H (0.0-4.0) ng/mL - Imaging and Cardiology Echo: report reviewed (07/2016 at [facility] showed EF 50 - 55%, moderate LVH) EKG: image reviewed EKG interpretations - Telemetry EKG Rhythm: Sinus Rhythm - EKG Sinus rhythms and dysrhythmias: sinus rhythm Repolarization changes or abnormalities: nonspecific abnormality, ST segment, and/or T wave Assessment and Plan Assessment: Acute diastolic heart failure / pulmonary edema Elevated troponins - minimally elevated and flat; unchanged from prior admissions; ECG with NAF; pt denies chest pain; currently nonspecific in setting of CKD. CKD Chronic respiratory failure, on 3L home O2 at all times Accelerated HTN - improved. DM HLP Plan: Convert IV lasix to IV bumex, 1mg BID. Repeat BMP in AM. Cont all other present cardiac regimen. No indication for repeat echo/stress at this time. Assessment and plan reviewed with pt at bedside. The patient has been seen in conjunction with Dr. Lockett who agrees with the assessment and plan of care.
[2016-10-17] MEDS ORDERED: CLARITIN-D 24HR PO SCH (10:00)
[2016-10-17] MEDS: HALFPRIN EC PO SCH (10:00)
[2016-10-17] MEDS ORDERED: ASPIRIN PO SCH (10:00)
[2016-10-17] MEDS ORDERED: LASIX IV SCH (10:00)
[2016-10-17] MEDS: COREG PO SCH ×2 (11:32→21:41)
[2016-10-17] MEDS: IMDUR PO SCH (11:33)
[2016-10-17] MEDS: HEPARIN SUB-Q SCH ×2 (11:34→21:41)
[2016-10-17 12:35] LABS: Creatine Kinase MB 4.1 ng/mL (0.0-4.0)
--- NOTE | 2016-10-17 14:13 | Progress Note ---
Assessment and Plan Assessment and plan: Patient is a 46-year-old man with a history of morbid obesity BMI 50.6, CHF, chronic hypoxic respiratory failure on 3 L oxygen at home, coronary artery disease status post stents, CK D stage III, COPD and obstructive sleep apnea noncompliant with CPAP who presented with shortness of breath, abdominal distention and leg edema. Chest x-ray shows CHF and pulmonary edema. 2016 transthoracic echocardiogram reported as mild concentric left ventricular Urgency, estimated EF is 55-60%, mild MR, trace TR, RVSP calculated at 45, marked increased right atrial pressure, mild pulmonary hypertension -Acute on chronic hypoxic respiratory failure due to CHF: Treat CHF -Acute on chronic diastolic heart failure with cor pulmonale: Cardiology is following, health counselor on compliance, medication adjusted -Morbid obesity, BMI 50.6: Counseling lifestyle modifications -Accelerated hypertension: Cardiology is following History Interval history: Patient seen and examined. Follow up on shortness breath, leg edema and abdominal swelling which are improved. Overnight uneventful. No cp, n/v or severe headaches. Imaging, old records, testing, labs, nursing notes reviewed. Hospitalist Physical - Physical exam Narrative exam: GEN: WDWN, morbidly obese man BMI 50.6, NAD, AWAKE, ALERT, ORIENTATED x 3 HEENT: NCAT, PERRL, EOMI, OP CLEAR NECK: SUPPLE, NO THYROMEGALY, NO JVD, NO LAD CVS: RRR, NORMAL S1S2 LUNGS/CHEST: NORMAL CHEST EXPANSION B, diminished AIR ENTRY B ABD: SOFT, distended, nontender GBS, NO REBOUND OR GUARDING EXT/SKIN: Bilateral leg pitting edema, anasarca MSK: FROM X 4 EXTREMITIES NEURO: CN 2-12 GROSSLY INTACT, NO FOCAL DEFICITS PSY: CALM - Constitutional Vitals: Temp Pulse Resp BP Pulse Ox 97.8 F 81 20 139/64 100 10/17/16 12:00 10/17/16 13:43 10/17/16 12:00 10/17/16 13:43 10/17/16 12:00 General appearance: Present: no acute distress Results - Labs CBC & Chem 7: 10/16/16 18:38 10/16/16 18:38 Labs: Laboratory Last Values WBC 7.6 K/mm3 (4.5-11.0) 10/16/16 18:38 RBC 3.43 M/mm3 (3.65-5.03) L 10/16/16 18:38 Hgb 9.0 gm/dl (11.8-15.2) L 10/16/16 18:38 Hct 28.3 % (35.5-45.6) L 10/16/16 18:38 MCV 82 fl (84-94) L 10/16/16 18:38 MCH 26 pg (28-32) L 10/16/16 18:38 MCHC 32 % (32-34) 10/16/16 18:38 RDW 15.5 % (13.2-15.2) H 10/16/16 18:38 Plt Count 259 K/mm3 (140-440) 10/16/16 18:38 Lymph % (Auto) Photo Editor 10/16/16 18:38 [place] % (Auto) Photo Editor 10/16/16 18:38 Eos % (Auto) Photo Editor 10/16/16 18:38 Baso % (Auto) Photo Editor 10/16/16 18:38 Lymph # Photo Editor 10/16/16 18:38 [place]io # Photo Editor 10/16/16 18:38 Eos # Photo Editor 10/16/16 18:38 Baso # Photo Editor 10/16/16 18:38 Seg Neutrophils % Photo Editor 10/16/16 18:38 Seg Neutrophils # Photo Editor 10/16/16 18:38 PT 13.0 Sec. (12.2-14.9) 10/16/16 18:38 INR 0.99 (0.87-1.13) 10/16/16 18:38 APTT 34.3 Sec. (24.2-36.6) 10/16/16 18:38 Sodium 138 mmol/L (137-145) 10/16/16 18:38 Potassium 4.3 mmol/L (3.6-5.0) 10/16/16 18:38 Chloride 98.0 mmol/L (98-107) 10/16/16 18:38 Carbon Dioxide 25 mmol/L (22-30) 10/16/16 18:38 Anion Gap 19 mmol/L 10/16/16 18:38 BUN 53 mg/dL (9-20) H 10/16/16 18:38 Creatinine 2.1 mg/dL (0.8-1.5) H 10/16/16 18:38 Estimated GFR 42 ml/min 10/16/16 18:38 BUN/Creatinine Ratio 25.23 % 10/16/16 18:38 Glucose 347 mg/dL (75-100) H 10/16/16 18:38 POC Glucose 326 (70-105) H 10/16/16 21:58 Calcium 8.8 mg/dL (8.4-10.2) 10/16/16 18:38 Total Creatine Kinase 486 units/L (55-170) H 10/17/16 11:54 CK-MB (CK-2) 4.1 ng/mL (0.0-4.0) H 10/17/16 11:54 CK-MB (CK-2) Rel Index 0.8 (0-4) 10/17/16 11:54 Troponin T 0.048 ng/mL (0.00-0.029) H 10/17/16 11:54 NT-Pro-B Natriuret Pep 926.0 pg/mL (0-450) H 10/16/16 18:36 Triglycerides 153 mg/dL (2-149) H 10/16/16 18:38 Cholesterol 147 mg/dL (50-199) 10/16/16 18:38 LDL Cholesterol Direct 86 mg/dL (50-130) 10/16/16 18:38 HDL Cholesterol 31 mg/dL (40-59) L 10/16/16 18:38 Cholesterol/HDL Ratio 4.74 % 10/16/16 18:38
[2016-10-17] MEDS: BUMEX IV SCH (17:42)
[2016-10-17] MEDS: ZOCOR PO SCH (21:41)
[2016-10-17] MEDS: LEVEMIR SUB-Q SCH (21:58)
[2016-10-18 06:26] LABS: Hematocrit 23.9 % (35.5-45.6); Hemoglobin 7.9 gm/dl (11.8-15.2); Mean Corpuscular HGB Conc 33 % (32-34); Mean Corpuscular Hemoglobin 27 pg (28-32); Mean Corpuscular Volume 80 fl (84-94); Platelet Count 249 K/mm3 (140-440); Red Blood Count 2.98 M/mm3 (3.65-5.03); Red Cell Distribution Width 15.6 % (13.2-15.2); White Blood Count 6.6 K/mm3 (4.5-11.0)
[2016-10-18] MEDS: BUMEX IV SCH (06:35)
[2016-10-18] MEDS: CATAPRES PO SCH ×3 (06:45→22:31)
[2016-10-18 06:50] LABS: BUN/Creatinine Ratio 26.66; Calcium 8.1 mg/dL (8.4-10.2); Chloride 100.8 mmol/L (98-107); Potassium 4.4 mmol/L (3.6-5.0)
--- NOTE | 2016-10-18 10:30 | Progress Note ---
Assessment and Plan Assessment: Acute diastolic heart failure / pulmonary edema Elevated troponins - minimally elevated and flat; unchanged from prior admissions; ECG with NAF; pt denies chest pain; currently nonspecific in setting of CKD. ADDY on CKD Chronic respiratory failure, on 3L home O2 at all times Accelerated HTN - improved. DM HLP Anemia Mild pulmonary HTN Plan: Echo reviewed - EF 55-60%, mild LVH, mild MR, trace TR, RVSP 45mmHg, mild pulmonary HTN. Hold diuresis in setting of increased BUN and Cr this AM. Repeat BMP in AM. Cont all other present cardiac regimen. Recommend anemia w/u per primary. Assessment and plan reviewed with pt at bedside. The patient has been seen in conjunction with Dr. Lockett who agrees with the assessment and plan of care. Subjective Date of service: 10/18/16 Principal diagnosis: DHF Interval history: Pt resting comfortably in bed, on BiPAP. states SOB is improving. BLE persists. VSS. Objective Last Vital Signs Temp 98.1 F 10/18/16 09:00 Pulse 65 10/18/16 09:00 Resp 20 10/18/16 09:00 BP 118/67 10/18/16 09:00 Pulse Ox 100 10/18/16 09:00 - Physical Examination General: No Apparent Distress HEENT: Positive: PERRL, Normocephaly, Mucus Membranes Moist Neck: Positive: neck supple, trachea midline Cardiac: Positive: Reg Rate and Rhythm, S1/S2 Lungs: Positive: Decreased Breath Sounds, Oxygen Neuro: Positive: Grossly Intact, Cranial Nerve 2-12 Intact Abdomen: Positive: Unremarkable, Soft, Active Bowel Sounds. Negative: Tender Skin: Positive: Clear. Negative: Rash, Wound Musculoskeletal: No Pain, Normal Range of Motion Extremities: Present: +2 Edema (BLE pitting) - Labs and Meds Cardiac Enzymes 10/17/16 Range/Units 11:54 CK-MB (CK-2) 4.1 H (0.0-4.0) ng/mL CBC 10/18/16 Range/Units 06:08 WBC 6.6 (4.5-11.0) K/mm3 RBC 2.98 L (3.65-5.03) M/mm3 Hgb 7.9 L (11.8-15.2) gm/dl Hct 23.9 L (35.5-45.6) % Plt Count 249 (140-440) K/mm3 Comprehensive Metabolic Panel 10/18/16 Range/Units 06:08 Sodium 138 (137-145) mmol/L Potassium 4.4 (3.6-5.0) mmol/L Chloride 100.8 (98-107) mmol/L Carbon Dioxide 24 (22-30) mmol/L BUN 64 H (9-20) mg/dL Creatinine 2.4 H (0.8-1.5) mg/dL Glucose 280 H (75-100) mg/dL Calcium 8.1 L (8.4-10.2) mg/dL - Imaging and Cardiology EKG: image reviewed Echo: report reviewed (07/2016 at [facility] showed EF 50 - 55%, moderate LVH) - Telemetry EKG Rhythm: Sinus Rhythm - EKG Sinus rhythms and dysrhythmias: sinus rhythm Repolarization changes or abnormalities: nonspecific abnormality, ST segment, and/or T wave
[2016-10-18] MEDS: NOVOLOG SUB-Q SCH ×2 (11:34→16:25)
[2016-10-18] MEDS: HEPARIN SUB-Q SCH (11:35)
[2016-10-18] MEDS: COREG PO SCH ×2 (11:40→22:31)
[2016-10-18] MEDS: HALFPRIN EC PO SCH (11:40)
[2016-10-18] MEDS: NEURONTIN PO SCH ×3 (11:41→22:30)
--- NOTE | 2016-10-18 16:15 | Progress Note ---
Assessment and Plan Assessment and plan: Patient is a 46-year-old man with a history of morbid obesity BMI 50.6, CHF, chronic hypoxic respiratory failure on 3 L oxygen at home, coronary artery disease status post stents, CK D stage III, COPD and obstructive sleep apnea noncompliant with CPAP who presented with shortness of breath, abdominal distention and leg edema. Chest x-ray shows CHF and pulmonary edema. 2016 Transthoracic echocardiogram reported as mild concentric left ventricular Urgency, estimated EF is 55-60%, mild MR, trace TR, RVSP calculated at 45, marked increased right atrial pressure, mild pulmonary hypertension -Acute on chronic hypoxic respiratory failure due to CHF: Treat CHF -Acute on chronic diastolic heart failure with cor pulmonale: Cardiology is following, counseling aide on compliance, medication adjusted -Morbid obesity, BMI 50.6: Counseling lifestyle modifications -Accelerated hypertension: Cardiology is following -ADDY/CKD 3 vasomotor nephropathy, poa: repeat in AM -DVT prophylaxis: sq heparin new issues: Increase Cr, hold diuretic and repeat in am Drop in HCT, no bleeding; hold heparin, since microcytic anemia suspect acute on AOCD, poa, check fobt and iron studies. History Interval history: Patient seen and examined. Follow up on shortness breath, leg edema and abdominal swelling which are improved. Overnight uneventful. No cp, n/v or severe headaches. Imaging, old records, testing, labs, nursing notes reviewed. Hospitalist Physical - Physical exam Narrative exam: GEN: WDWN, morbidly obese man BMI 50.6, NAD, AWAKE, ALERT, ORIENTATED x 3 HEENT: NCAT, PERRL, EOMI, OP CLEAR NECK: SUPPLE, NO THYROMEGALY, NO JVD, NO LAD CVS: RRR, NORMAL S1S2 LUNGS/CHEST: NORMAL CHEST EXPANSION B, diminished AIR ENTRY B ABD: SOFT, distended, nontender GBS, NO REBOUND OR GUARDING EXT/SKIN: Bilateral leg pitting edema, anasarca MSK: FROM X 4 EXTREMITIES NEURO: CN 2-12 GROSSLY INTACT, NO FOCAL DEFICITS PSY: CALM - Constitutional Vitals: Temp Pulse Resp BP Pulse Ox 98.1 F 65 22 118/67 100 10/18/16 09:00 10/18/16 12:44 10/18/16 12:44 10/18/16 14:32 10/18/16 12:44 General appearance: Present: no acute distress Results - Labs CBC & Chem 7: 10/18/16 06:08 10/18/16 06:08 Labs: Laboratory Last Values WBC 6.6 K/mm3 (4.5-11.0) 10/18/16 06:08 RBC 2.98 M/mm3 (3.65-5.03) L 10/18/16 06:08 Hgb 7.9 gm/dl (11.8-15.2) L 10/18/16 06:08 Hct 23.9 % (35.5-45.6) L 10/18/16 06:08 MCV 80 fl (84-94) L 10/18/16 06:08 MCH 27 pg (28-32) L 10/18/16 06:08 MCHC 33 % (32-34) 10/18/16 06:08 RDW 15.6 % (13.2-15.2) H 10/18/16 06:08 Plt Count 249 K/mm3 (140-440) 10/18/16 06:08 Lymph % (Auto) Lead Injection Mold Technician 10/16/16 18:38 Mcdowell % (Auto) Lead Injection Mold Technician 10/16/16 18:38 Eos % (Auto) Lead Injection Mold Technician 10/16/16 18:38 Baso % (Auto) Lead Injection Mold Technician 10/16/16 18:38 Lymph # Lead Injection Mold Technician 10/16/16 18:38 Mcdowell # Lead Injection Mold Technician 10/16/16 18:38 Eos # Lead Injection Mold Technician 10/16/16 18:38 Baso # Lead Injection Mold Technician 10/16/16 18:38 Seg Neutrophils % Lead Injection Mold Technician 10/16/16 18:38 Seg Neutrophils # Lead Injection Mold Technician 10/16/16 18:38 PT 13.0 Sec. (12.2-14.9) 10/16/16 18:38 INR 0.99 (0.87-1.13) 10/16/16 18:38 APTT 34.3 Sec. (24.2-36.6) 10/16/16 18:38 Sodium 138 mmol/L (137-145) 10/18/16 06:08 Potassium 4.4 mmol/L (3.6-5.0) 10/18/16 06:08 Chloride 100.8 mmol/L (98-107) 10/18/16 06:08 Carbon Dioxide 24 mmol/L (22-30) 10/18/16 06:08 Anion Gap 18 mmol/L 10/18/16 06:08 BUN 64 mg/dL (9-20) H 10/18/16 06:08 Creatinine 2.4 mg/dL (0.8-1.5) H 10/18/16 06:08 Estimated GFR 36 ml/min 10/18/16 06:08 BUN/Creatinine Ratio 26.66 % 10/18/16 06:08 Glucose 280 mg/dL (75-100) H 10/18/16 06:08 POC Glucose 251 (70-105) H 10/17/16 21:56 Calcium 8.1 mg/dL (8.4-10.2) L 10/18/16 06:08 Total Creatine Kinase 486 units/L (55-170) H 10/17/16 11:54 CK-MB (CK-2) 4.1 ng/mL (0.0-4.0) H 10/17/16 11:54 CK-MB (CK-2) Rel Index 0.8 (0-4) 10/17/16 11:54 Troponin T 0.048 ng/mL (0.00-0.029) H 10/17/16 11:54 NT-Pro-B Natriuret Pep 926.0 pg/mL (0-450) H 10/16/16 18:36 Triglycerides 153 mg/dL (2-149) H 10/16/16 18:38 Cholesterol 147 mg/dL (50-199) 10/16/16 18:38 LDL Cholesterol Direct 86 mg/dL (50-130) 10/16/16 18:38 HDL Cholesterol 31 mg/dL (40-59) L 10/16/16 18:38 Cholesterol/HDL Ratio 4.74 % 10/16/16 18:38
[2016-10-18 17:59] LABS: Iron 32 ug/dL (49-181); Total Iron Binding Capacity 260 mcg/dL (250-450)
[2016-10-18] MEDS: LEVEMIR SUB-Q SCH (22:30)
[2016-10-18] MEDS: ZOCOR PO SCH (22:30)
[2016-10-19] MEDS: CATAPRES PO SCH ×2 (06:46→14:00)
[2016-10-19 07:39] LABS: Hematocrit 25.9 % (35.5-45.6); Hemoglobin 8.4 gm/dl (11.8-15.2); Mean Corpuscular HGB Conc 32 % (32-34); Mean Corpuscular Hemoglobin 26 pg (28-32); Mean Corpuscular Volume 81 fl (84-94); Platelet Count 274 K/mm3 (140-440); Red Cell Distribution Width 15.8 % (13.2-15.2); White Blood Count 7.4 K/mm3 (4.5-11.0)
[2016-10-19 08:01] LABS: Calcium 8.2 mg/dL (8.4-10.2); Potassium 4.5 mmol/L (3.6-5.0)
[2016-10-19] MEDS: IMDUR PO SCH (10:28)
[2016-10-19] MEDS: NEURONTIN PO SCH ×2 (10:28→14:00)
[2016-10-19] MEDS: COREG PO SCH (10:28)
[2016-10-19] MEDS: HALFPRIN EC PO SCH (10:28)
--- NOTE | 2016-10-19 10:30 | Progress Note ---
Assessment and Plan Assessment: Acute diastolic heart failure / pulmonary edema Elevated troponins - minimally elevated and flat; unchanged from prior admissions; ECG with NAF; pt denies chest pain; currently nonspecific in setting of CKD. ADDY on CKD Chronic respiratory failure, on 3L home O2 at all times Accelerated HTN - improved. DM HLP Anemia Mild pulmonary HTN Plan: Echo reviewed - EF 55-60%, mild LVH, mild MR, trace TR, RVSP 45mmHg, mild pulmonary HTN. Renal indices improved. Resume Bumex, 1mg PO daily. Cont all other present cardiac regimen. Consider OP w/u of chronic anemia. Currently stable cardiac status. Pt may discharge home from cardiology standpoint. On discharge, recommend continuation of PO bumex, 1mg daily. Follow up in our [place] office with Anastasia Anders NP, on 10/23/2016 @ 11:30AM. Assessment and plan reviewed with pt at bedside. The patient has been seen in conjunction with Dr. Lockett who agrees with the assessment and plan of care. Subjective Date of service: 10/19/16 Principal diagnosis: DHF Interval history: Pt resting comfortably in bed, on BiPAP. states SOB has nearly resolved, denies orthopnea. BLE persists. VSS. Objective Last Vital Signs Temp 98.4 F 10/19/16 04:40 Pulse 60 10/19/16 06:46 Resp 24 10/19/16 04:40 BP 135/81 10/19/16 06:46 Pulse Ox 100 10/19/16 04:40 - Physical Examination General: No Apparent Distress HEENT: Positive: PERRL, Normocephaly, Mucus Membranes Moist Neck: Positive: neck supple, trachea midline Cardiac: Positive: Reg Rate and Rhythm, S1/S2 Lungs: Positive: Decreased Breath Sounds, Oxygen Neuro: Positive: Grossly Intact, Cranial Nerve 2-12 Intact Abdomen: Positive: Unremarkable, Soft, Active Bowel Sounds. Negative: Tender Skin: Positive: Clear. Negative: Rash, Wound Musculoskeletal: No Pain, Normal Range of Motion Extremities: Present: +2 Edema (BLE pitting) - Labs and Meds CBC 10/19/16 Range/Units 07:04 WBC 7.4 (4.5-11.0) K/mm3 RBC 3.20 L (3.65-5.03) M/mm3 Hgb 8.4 L (11.8-15.2) gm/dl Hct 25.9 L (35.5-45.6) % Plt Count 274 (140-440) K/mm3 Comprehensive Metabolic Panel 10/19/16 Range/Units 07:04 Sodium 142 (137-145) mmol/L Potassium 4.5 (3.6-5.0) mmol/L Chloride 103.0 (98-107) mmol/L Carbon Dioxide 25 (22-30) mmol/L BUN 57 H (9-20) mg/dL Creatinine 1.9 H (0.8-1.5) mg/dL Glucose 291 H (75-100) mg/dL Calcium 8.2 L (8.4-10.2) mg/dL - Imaging and Cardiology EKG: image reviewed Echo: report reviewed (07/[address] [facility] showed EF 50 - 55%, moderate LVH) - EKG Sinus rhythms and dysrhythmias: sinus rhythm Repolarization changes or abnormalities: nonspecific abnormality, ST segment, and/or T wave
[2016-10-19] MEDS ORDERED: BUMEX PO SCH (11:00)
[2016-10-19] MEDS: NOVOLOG SUB-Q SCH ×2 (12:00→19:52)
--- NOTE | 2016-10-19 13:24 | Discharge Summary ---
Providers - Providers Date of Admission: 10/17/16 00:41 Date of discharge: 10/19/16 Attending physician: DORIS ALEXIS Primary care physician: CAD DRAFTSMAN Hospitalization Condition: Stable Hospital course: Patient is a 46-year-old man with a history of morbid obesity BMI 50.6, CHF, chronic hypoxic respiratory failure on 3 L oxygen at home, coronary artery disease status post stents, CK D stage III, COPD and obstructive sleep apnea noncompliant with CPAP who presented with shortness of breath, abdominal distention and leg edema. Chest x-ray shows CHF and pulmonary edema. 2016 Transthoracic echocardiogram reported as mild concentric left ventricular Urgency, estimated EF is 55-60%, mild MR, trace TR, RVSP calculated at 45, marked increased right atrial pressure, mild pulmonary hypertension -Acute on chronic hypoxic respiratory failure due to CHF: Treat CHF -Acute on chronic diastolic heart failure with cor pulmonale: Cardiology is following, community health counselor on compliance, medication adjusted -Morbid obesity, BMI 50.6: Counseling lifestyle modifications -Accelerated hypertension: Cardiology is following -ADDY/CKD 3 vasomotor nephropathy, poa: repeat in AM -DVT prophylaxis: sq heparin other issues encountered Increase Cr, held diuretic and repeat in am Drop in HCT, no bleeding; hold heparin, since microcytic anemia suspect acute on AOCD, poa, check fobt and iron studies. The anemia is chronic iron deficiency anemia, needs c-scopy outpt ARF resolved. 10/19/16 per Cardiology; " Acute diastolic heart failure / pulmonary edema Elevated troponins - minimally elevated and flat; unchanged from prior admissions; ECG with NAF; pt denies chest pain; currently nonspecific in setting of CKD. ADDY on CKD Chronic respiratory failure, on 3L home O2 at all times Accelerated HTN - improved. DM HLP Anemia Mild pulmonary HTN Plan: Echo reviewed - EF 55-60%, mild LVH, mild MR, trace TR, RVSP 45mmHg, mild pulmonary HTN. Renal indices improved. Resume Bumex, 1mg PO daily. Cont all other present cardiac regimen. Consider OP w/u of chronic anemia. Currently stable cardiac status. Pt may discharge home from cardiology standpoint. On discharge, recommend continuation of PO bumex, 1mg daily. Follow up in our [place] office with Anastasia Anders NP, on 10/23/2016 @ 11:30AM. Assessment and plan reviewed with pt at bedside." Disposition: DC-01 TO HOME OR SELFCARE Time spent for discharge: 36 minutes Core Measure Documentation - Palliative Care Palliative Care/ Comfort Measures: Not Applicable - Core Measures Any of the following diagnoses?: heart failure - VTE Discharge Requirements Deep Vein Thrombosis/Pulmonary Embolism Present on Admission: No Has pt received <5 days of overlap therapy or INR<2.0: No Anticoagulant overlap therapy prescribed at discharge: No Contraindication No Overlap Therapy order at DC: Not Indicated - Heart Failure Discharge Requirements JULIETH/ARB for LVSD if EF <40%: No Reason for no JULIETH/ARB: Renal impairment Beta kesha at discharge: Yes Exam - Physical Exam Narrative exam: GEN: WDWN, morbidly obese man BMI 50.6, NAD, AWAKE, ALERT, ORIENTATED x 3 HEENT: NCAT, PERRL, EOMI, OP CLEAR NECK: SUPPLE, NO THYROMEGALY, NO JVD, NO LAD CVS: RRR, NORMAL S1S2 LUNGS/CHEST: NORMAL CHEST EXPANSION B, improved and adequate AIR ENTRY B ABD: SOFT, distended, nontender GBS, NO REBOUND OR GUARDING EXT/SKIN: Bilateral leg pitting edema resolving MSK: FROM X 4 EXTREMITIES NEURO: CN 2-12 GROSSLY INTACT, NO FOCAL DEFICITS PSY: CALM - Constitutional Vitals: Temp Pulse Resp BP Pulse Ox 98.4 F 60 24 135/81 100 10/19/16 04:40 10/19/16 06:46 10/19/16 04:40 10/19/16 06:46 10/19/16 04:40 Plan Activity: other (no strenous activities until cleared by Cardiology) Diet: low salt, diabetic Special Instructions: record daily BP diary, record blood sugar diary Additional Instructions: See your pcp to arrange for Colonoscopy Follow up with: FLOR HAN MD [Primary Care Provider] - 3-5 Days YOHANA VERNON MD [Staff Physician] - 7 Days Prescriptions: Bumetanide [Bumex 1 mg tab] 1 mg PO QDAY #30 tablet Nitroglycerin [Nitrostat] 0.4 mg SL .Q5MIN PRN #30 tablet PRN Reason: Chest Pain oxyCODONE [Roxicodone TAB] 5 mg PO Q8H PRN #30 tablet PRN Reason: Pain , Severe (7-10)
[2016-10-19 15:52] VITALS: BP 121/79
[2016-10-23] MEDS ORDERED: ERGOCALCIFEROL PO SCH (10:00)
== END 2016-10-19 18:55 | disposition home or self-care (01) | DRG 291 ==
LOC: ED 16:49 → 4A 10-17 00:41
PROVIDERS: ADMIT Internal Medicine; ATTEND Internal Medicine
PROC: 5A09457 Assistance with Respiratory Ventilation, 24-96 Consecutive Hours, Continuous Positive Airway Pressure (ICD-10-PCS; principal; 2016-10-16)
DX: I13.0 Hypertensive heart and chronic kidney disease with heart failure and stage 1 through stage 4 chronic kidney disease, or unspecified chronic kidney disease (principal); J96.21 Acute and chronic respiratory failure with hypoxia; N17.0 Acute kidney failure with tubular necrosis; I50.33 Acute on chronic diastolic (congestive) heart failure; Z68.43 Body mass index [BMI] 50.0-59.9, adult; I25.10 Atherosclerotic heart disease of native coronary artery without angina pectoris; E78.5 Hyperlipidemia, unspecified; E66.01 Morbid (severe) obesity due to excess calories; N18.3 Chronic kidney disease, stage 3 (moderate); J44.9 Chronic obstructive pulmonary disease, unspecified; G47.33 Obstructive sleep apnea (adult) (pediatric); I27.2 Other secondary pulmonary hypertension; D50.9 Iron deficiency anemia, unspecified; E11.22 Type 2 diabetes mellitus with diabetic chronic kidney disease; I25.2 Old myocardial infarction; Z87.442 Personal history of urinary calculi; Z95.5 Presence of coronary angioplasty implant and graft; Z91.19 Patient's noncompliance with other medical treatment and regimen; Z71.3 Dietary counseling and surveillance; Z82.49 Family history of ischemic heart disease and other diseases of the circulatory system; Z83.3 Family history of diabetes mellitus
CPT/HCPCS: 36415; 71010; 80048; 80061; 82550; 82553; 82728; 82962; 83550; 83880; 84443; 84484; 85025; 85027; 85610; 85730; 93005; 93010; 93306; 94640; 94660; 94760; 96374; 96375; J1644; J1815; J1818; J1940; J2270; J2930; J3010